=== PATIENT | male | born 1945 | race Caucasian/White ===

== ENCOUNTER 2021-01-04 13:03 | Emergency (ER) | payer MEDICARE ==
[2021-01-04] MEDS ORDERED: SODIUM CHLORIDE 0.9% 1,000 ML IV ONE (14:32)
[2021-01-04] MEDS ORDERED: IBUPROFEN 600 MG TAB PO STA (14:32)
--- NOTE | 2021-01-04 14:36 | ED ---
General Adult HPI - General Source: patient, RN notes reviewed, old records reviewed Mode of arrival: wheelchair Limitations: no limitations <Gerry Cartagena - Last Filed: 01/04/21 14:32> <Jerardo Shafer - Last Filed: 01/04/21 16:18> - General Chief complaint: Shortness of Breath Stated complaint: Fever, Cough, SOB Time Seen by Provider: 01/04/21 14:15 - History of Present Illness Initial comments: This is a 75-year-old male who presents emergency Department stating he thinks his COVID. Patient states for one week he has been having a cough and body aches he recently lost his taste and smell. Patient also states he's had diarrhea the last couple of days. Patient denies any shortness of breath or chest pain or palpitations. Patient states he just feels terrible. Patient did not get the vaccine. (Gerry Cartagena) - Related Data Home Medications Medication Instructions Recorded Confirmed Ascorbic Acid [Vitamin C] 1,000 mg PO DAILY 01/04/21 01/04/21 Cetirizine HCl 10 mg PO DAILY PRN 01/04/21 01/04/21 Cholecalciferol [Vitamin D3 (25 25 mcg PO DAILY 01/04/21 01/04/21 Mcg = 1000 Iu)] Multivitamins, Thera [Multivitamin 1 tab PO DAILY 01/04/21 01/04/21 (formulary)] Vitamin B Complex 1 cap PO DAILY 01/04/21 01/04/21 Zinc Gluconate [Zinc] 50 mg PO HS 01/04/21 01/04/21 Allergies Allergy/AdvReac Type Severity Reaction Status Date / Time No Known Allergies Allergy Verified 01/04/21 14:38 Review of Systems ROS Other: All systems not noted in ROS Statement are negative. <Gerry Cartagena - Last Filed: 01/04/21 14:32> ROS Other: All systems not noted in ROS Statement are negative. <Jerardo Shafer - Last Filed: 01/04/21 16:18> ROS Statement: Those systems with pertinent positive or pertinent negative responses have been documented in the HPI. Past Medical History Past Medical History: No Reported History History of Any Multi-Drug Resistant Organisms: None Reported Past Surgical History: Hernia Repair, Orthopedic Surgery, Tonsillectomy Additional Past Surgical History / Comment(s): thumb joint bilat Past Psychological History: No Psychological Hx Reported Smoking Status: Never smoker Past Alcohol Use History: None Reported Past Drug Use History: None Reported <Gerry Cartagena - Last Filed: 01/04/21 14:32> General Exam Limitations: no limitations <Gerry Cartagena - Last Filed: 01/04/21 14:32> - General Exam Comments Initial Comments: GENERAL: Patient is well-developed and well-nourished. Patient is nontoxic and well- hydrated and is in mild distress. ENT: Neck is soft and supple. No significant lymphadenopathy is noted. Oropharynx is clear. Moist mucous membranes. Neck has full range of motion without eliciting any pain. EYES: The sclera were anicteric and conjunctiva were pink and moist. Extraocular movements were intact and pupils were equal round and reactive to light. Eyelids were unremarkable. PULMONARY: Patient has some crackles in the bases. CARDIOVASCULAR: There is a regular rate and rhythm without any murmurs gallops or rubs. ABDOMEN: Soft and nontender with normal bowel sounds. SKIN: Skin is clear with no lesions or rashes and otherwise unremarkable. NEUROLOGIC: Patient is alert and oriented x3. Cranial nerves II through XII are grossly intact. Motor and sensory are also intact. Normal speech, volume and content. Symmetrical smile. MUSCULOSKELETAL: Normal extremities with adequate strength and full range of motion. No lower extremity swelling or edema. No calf tenderness. LYMPHATICS: No significant lymphadenopathy is noted PSYCHIATRIC: Normal psychiatric evaluation. (Gerry Cartagena) Course Vital Signs 01/04/21 01/04/21 01/04/21 13:34 14:12 14:20 Temperature 99.8 F H Pulse Rate 71 67 Respiratory 18 16 16 Rate Blood Pressure 100/61 105/67 O2 Sat by Pulse 95 100 Oximetry 01/04/21 15:40 Temperature 97.8 F Pulse Rate 68 Respiratory 18 Rate Blood Pressure 112/87 O2 Sat by Pulse 97 Oximetry Medical Decision Making <Gerry Cartagena - Last Filed: 01/04/21 14:32> <Jerardo Shafer - Last Filed: 01/04/21 16:18> - Medical Decision Making patient received the monoclonal antibodies. Dr. Shafer be taking over the care of this patient (Gerry Cartagena) Patient care is signed out to me by previous shift physician, Dr. Cartagena. Briefly, patient is a 75-year-old male a positive for coronal virus. Patient is not vaccinated. Patient ordered for monoclonal antibodies. He is allegedly hypoxic and well-appearing at the bedside. Plan is to reevaluate the patient after monoclonal antibody infusion and observation and determine final disposition. Reevaluated at bedside at 4:20 PM found to be stable medical condition. Patient not showing any signs of respiratory distress. Is well-appearing at the bedside. X-ray shows brisk chronic interstitial prominence. Patient will be discharged. Return precautions discussed. Patient is agreeable to plan. (Jerardo Shafer) - Lab Data Lab Results 01/04/21 Range/Units 13:41 Coronavirus (PCR) Detected A (Not Detectd) Disposition <Lane Cartagenae - Last Filed: 01/04/21 14:32> Is patient prescribed a controlled substance at d/c from ED?: No <Jerardo Shafer - Last Filed: 01/04/21 16:18> Clinical Impression: COVID-19 Disposition: HOME SELF-CARE Condition: Fair Instructions (If sedation given, give patient instructions): Coronavirus Disease 2019 (COVID-19) Referrals: Wes Umana MD [Primary Care Provider] - 1-2 days
[2021-01-04] MEDS: ACETAMINOPHEN TAB 500 MG TAB PO STA ×2 (14:42→14:44)
[2021-01-04] MEDS ORDERED: CASIRIVIMAB/IMDEVIMAB (EUA) 1,200 MG in SODIUM CHLORIDE 0.9% 100 ML IVPB ONE (15:00)
[2021-01-04] MEDS ORDERED: SODIUM CHLORIDE 0.9% 50 ML IVPB ONE (15:00)
--- NOTE | 2021-01-04 15:27 | XR ---
EXAMINATION TYPE: XR chest 2V DATE OF EXAM: 01/04/2021 COMPARISON: None HISTORY: Difficulty breathing TECHNIQUE: Frontal and lateral views of the chest are obtained. FINDINGS: There is mild diffuse interstitial prominence particularly in the mid and lower lung zones which could represent an acute process or chronic interstitial process. There is no prior study for comparison. The heart is normal in size. The pulmonary vasculature is not cephalized. There is no pleural effusion or pneumothorax. The osseous structures are intact IMPRESSION: Mild diffuse interstitial prominence in the mid and lower lung zones which could represe nt a chronic process although an acute interstitial process is not excluded. There is no prior study for comparison.
[2021-01-04 15:40] VITALS: BP 112/87; PULSE 68; RESP 18; TEMP 97.8
== END 2021-01-04 16:39 | disposition home or self-care (01) ==
LOC: EC 13:03
DX: U07.1 COVID-19 (principal)
CPT/HCPCS: 96365 ×2; 96361 ×2; 99284 ×2; 87635; 71046; Q0243; 96360

== ENCOUNTER 2021-01-08 14:38 | Inpatient (IN) | payer MEDICARE ==
[2021-01-08] MEDS ORDERED: SODIUM CHLORIDE 0.9% 1,000 ML IV STA (16:00)
--- NOTE | 2021-01-08 16:22 | XR ---
EXAMINATION TYPE: XR chest 2V DATE OF EXAM: 01/08/2021 COMPARISON: Chest x-ray 4 days ago. HISTORY: Weakness. COVID. TECHNIQUE: Frontal and lateral views of the chest are obtained. FINDINGS: The osseous structures remain demineralized. Cardiac silhouette size stable and within nor mal limits. There are bilateral chronic parenchymal changes with persistent left basilar opacity and developing peripheral multifocal right mid to lower lung opacities thought present. No pleural effusi on or pneumothorax seen bilaterally. IMPRESSION: Stable left basilar opacity. New peripheral multifocal right mid to lower lung opacities . Findings likely product of known covid-19 infection.
[2021-01-08 16:39] LABS: Basophils % (A) 0 %; Eosinophils % (A) 0 %; HCT 43.5 % (39.0-53.0); HGB 14.7 gm/dL (13.0-17.5); Lymphocytes # (A) 0.4 k/uL (1.0-4.8); Lymphocytes % (A) 6 %; MCH 30.6 pg (25.0-35.0); MCHC 33.8 g/dL (31.0-37.0); MCV 90.4 fL (80.0-100.0); Mean Platelet Volume 7.6; Monocytes # (A) 0.6 k/uL (0-1.0); Monocytes % (A) 8 %; Neutrophils # (A) 6.5 k/uL (1.3-7.7); Neutrophils % (A) 85 %; Platelet Count 212 k/uL (150-450); RBC 4.81 m/uL (4.30-5.90); WBC 7.7 k/uL (3.8-10.6)
[2021-01-08 16:47] LABS: ALT 92 U/L (4-49); AST 122 U/L (17-59); African American GFR (CKD) >90 (>60 ml/min/1.73 sqM); Albumin 3.7 g/dL (3.5-5.0); Alkaline Phosphatase 91 U/L (38-126); Anion Gap 13 mmol/L; Blood Urea Nitrogen 15 mg/dL (9-20); Calcium 9.1 mg/dL (8.4-10.2); Carbon Dioxide 20 mmol/L (22-30); Chloride 100 mmol/L (98-107); Glucose 109 mg/dL (74-99); Non-African American GFR(CKD) 88 (>60 ml/min/1.73 sqM); Potassium 4.3 mmol/L (3.5-5.1); Sodium 133 mmol/L (137-145); Total Bilirubin 1.3 mg/dL (0.2-1.3); Total Protein 6.8 g/dL (6.3-8.2)
[2021-01-08 16:50] LABS: Partial Thromboplastin Time 23.4 sec (22.0-30.0); Prothrombin Time 10.9 sec (9.0-12.0)
[2021-01-08 18:10] LABS: Appearance,Urine Clear (Clear); Bilirubin,Urine Negative (Negative); Blood,Urine Negative (Negative); Color,Urine Yellow; Glucose,Urine (UA) Negative (Negative); Ketones,Urine 2+ (Negative); Leukocyte Esterase,Urine Negative (Negative); Nitrite,Urine Negative (Negative); Protein,Urine Trace (Negative); Specific Gravity,Urine 1.005 (1.001-1.035); Urobilinogen,Urine <2.0 mg/dL (<2.0)
--- NOTE | 2021-01-08 18:30 | ED ---
General Adult HPI - General Chief complaint: Weakness Stated complaint: COVID+,Vomiting Revisit Time Seen by Provider: 01/08/21 15:50 Source: patient, family, RN notes reviewed Mode of arrival: wheelchair Limitations: no limitations - History of Present Illness Initial comments: Patient is a 75-year-old male that presents to the emergency department com plaining of continuing symptoms of Covid. He notes he got monoclonal antibodies approximately 1 week ago. Patient is otherwise well-appearing. He notes that he just feels rundown still. Patient denied any chest pain shortness of breath headache nausea vomiting diarrhea constipation fever fatigue chills. - Related Data Home Medications Medication Instructions Recorded Confirmed Ascorbic Acid [Vitamin C] 1,000 mg PO DAILY 01/04/21 01/08/21 Cetirizine HCl 10 mg PO DAILY PRN 01/04/21 01/08/21 Cholecalciferol [Vitamin D3 (25 25 mcg PO DAILY 01/04/21 01/08/21 Mcg = 1000 Iu)] Multivitamins, Thera [Multivitamin 1 tab PO DAILY 01/04/21 01/08/21 (formulary)] Vitamin B Complex 1 cap PO DAILY 01/04/21 01/08/21 Zinc Gluconate [Zinc] 50 mg PO HS 01/04/21 01/08/21 Acetaminophen Tab [Tylenol Tab] 500 mg PO Q6H PRN 01/08/21 01/08/21 Allergies Allergy/AdvReac Type Severity Reaction Status Date / Time No Known Allergies Allergy Verified 01/08/21 17:54 Review of Systems ROS Statement: Those systems with pertinent positive or pertinent negative responses have been documented in the HPI. ROS Other: All systems not noted in ROS Statement are negative. Past Medical History Past Medical History: No Reported History History of Any Multi-Drug Resistant Organisms: None Reported Past Surgical History: Hernia Repair, Orthopedic Surgery, Tonsillectomy Additional Past Surgical History / Comment(s): thumb joint bilat Past Psychological History: No Psychological Hx Reported Smoking Status: Never smoker Past Alcohol Use History: None Reported Past Drug Use History: None Reported General Exam Limitations: no limitations General appearance: alert, in no apparent distress Head exam: Present: atraumatic, normocephalic, normal inspection Eye exam: Present: normal appearance, PERRL, EOMI. Absent: scleral icterus, conjunctival injection, periorbital swelling ENT exam: Present: normal exam, mucous membranes moist Neck exam: Present: normal inspection Respiratory exam: Present: normal lung sounds bilaterally. Absent: respiratory distress, wheezes, rales, rhonchi, stridor Cardiovascular Exam: Present: regular rate, normal rhythm, normal heart sounds. Absent: systolic murmur, diastolic murmur, rubs, gallop, clicks GI/Abdominal exam: Present: soft, normal bowel sounds. Absent: distended, tenderness, guarding, rebound, rigid Extremities exam: Present: normal inspection, full ROM, normal capillary refill. Absent: tenderness, pedal edema, joint swelling, calf tenderness Neurological exam: Present: alert, oriented X3 Psychiatric exam: Present: normal affect, normal mood Skin exam: Present: warm, dry, intact, normal color. Absent: rash Course Vital Signs 01/08/21 14:47 Temperature 96.8 F L Pulse Rate 67 Respiratory 24 Rate Blood Pressure 106/62 O2 Sat by Pulse 94 L Oximetry Medical Decision Making - Medical Decision Making 75-year-old male with continuing Covid symptoms after monoclonal antibody infusion. Labs, chest x-ray ordered. Labs unremarkable. Chest x-ray shows bilateral infiltrates consistent with Covid 19. Patient's vital signs are stable. Case discussed with Dr. Perez, patient discharge home. - Lab Data Result diagrams: 01/08/21 16:16 01/08/21 16:16 Lab Results 01/08/21 01/08/21 01/08/21 Range/Units 16:16 16:16 16:16 WBC 7.7 (3.8-10.6) k/uL RBC 4.81 (4.30-5.90) m/uL Hgb 14.7 (13.0-17.5) gm/dL Hct 43.5 (39.0-53.0) % MCV 90.4 (80.0-100.0) fL MCH 30.6 (25.0-35.0) pg MCHC 33.8 (31.0-37.0) g/dL RDW 12.0 (11.5-15.5) % Plt Count 212 (150-450) k/uL MPV 7.6 Neutrophils % 85 % Lymphocytes % 6 % Monocytes % 8 % Eosinophils % 0 % Basophils % 0 % Neutrophils # 6.5 (1.3-7.7) k/uL Lymphocytes # 0.4 L (1.0-4.8) k/uL Monocytes # 0.6 (0-1.0) k/uL Eosinophils # 0.0 (0-0.7) k/uL Basophils # 0.0 (0-0.2) k/uL PT 10.9 (9.0-12.0) sec INR 1.0 (<1.2) APTT 23.4 (22.0-30.0) sec Sodium (137-145) mmol/L Potassium (3.5-5.1) mmol/L Chloride (98-107) mmol/L Carbon Dioxide (22-30) mmol/L Anion Gap mmol/L BUN (9-20) mg/dL Creatinine (0.66-1.25) mg/dL Est GFR (CKD-EPI)AfAm (>60 ml/min/1.73 sqM) Est GFR (CKD-EPI)NonAf (>60 ml/min/1.73 sqM) Glucose (74-99) mg/dL Plasma Lactic Acid Dean (0.7-2.0) mmol/L Calcium (8.4-10.2) mg/dL Total Bilirubin (0.2-1.3) mg/dL AST (17-59) U/L ALT (4-49) U/L Alkaline Phosphatase (38-126) U/L Total Protein (6.3-8.2) g/dL Albumin (3.5-5.0) g/dL Urine Color Yellow Urine Appearance Clear (Clear) Urine pH 6.0 (5.0-8.0) Ur Specific Marble 1.005 (1.001-1.035) Urine Protein Trace H (Negative) Urine Glucose (UA) Negative (Negative) Urine Ketones 2+ H (Negative) Urine Blood Negative (Negative) Urine Nitrite Negative (Negative) Urine Bilirubin Negative (Negative) Urine Urobilinogen <2.0 (<2.0) mg/dL Ur Leukocyte Esterase Negative (Negative) 01/08/21 01/08/21 Range/Units 16:16 16:16 WBC (3.8-10.6) k/uL RBC (4.30-5.90) m/uL Hgb (13.0-17.5) gm/dL Hct (39.0-53.0) % MCV (80.0-100.0) fL MCH (25.0-35.0) pg MCHC (31.0-37.0) g/dL RDW (11.5-15.5) % Plt Count (150-450) k/uL MPV Neutrophils % % Lymphocytes % % Monocytes % % Eosinophils % % Basophils % % Neutrophils # (1.3-7.7) k/uL Lymphocytes # (1.0-4.8) k/uL Monocytes # (0-1.0) k/uL Eosinophils # (0-0.7) k/uL Basophils # (0-0.2) k/uL PT (9.0-12.0) sec INR (<1.2) APTT (22.0-30.0) sec Sodium 133 L (137-145) mmol/L Potassium 4.3 (3.5-5.1) mmol/L Chloride 100 (98-107) mmol/L Carbon Dioxide 20 L (22-30) mmol/L Anion Gap 13 mmol/L BUN 15 (9-20) mg/dL Creatinine 0.80 (0.66-1.25) mg/dL Est GFR (CKD-EPI)AfAm >90 (>60 ml/min/1.73 sqM) Est GFR (CKD-EPI)NonAf 88 (>60 ml/min/1.73 sqM) Glucose 109 H (74-99) mg/dL Plasma Lactic Acid Dean 1.2 (0.7-2.0) mmol/L Calcium 9.1 (8.4-10.2) mg/dL Total Bilirubin 1.3 (0.2-1.3) mg/dL AST 122 H (17-59) U/L ALT 92 H (4-49) U/L Alkaline Phosphatase 91 (38-126) U/L Total Protein 6.8 (6.3-8.2) g/dL Albumin 3.7 (3.5-5.0) g/dL Urine Color Urine Appearance (Clear) Urine pH (5.0-8.0) Ur Specific Mar[place] (1.001-1.035) Urine Protein (Negative) Urine Glucose (UA) (Negative) Urine Ketones (Negative) Urine Blood (Negative) Urine Nitrite (Negative) Urine Bilirubin (Negative) Urine Urobilinogen (<2.0) mg/dL Ur Leukocyte Esterase (Negative) - Radiology Data Radiology results: report reviewed, image reviewed Chest x-ray: Stable left basilar opacity. Peripheral multifocal right mid to lower lung opacities. Findings likely products of known Covid 19 infection. Disposition Clinical Impression: COVID-19 Disposition: HOME SELF-CARE Condition: Stable Instructions (If sedation given, give patient instructions): Coronavirus Disease 2019 (COVID-19) Additional Instructions: Please return to the Emergency Department if symptoms worsen or any other concerns. Symptoms may take several weeks to improve back to normal baseline. Follow-up primary care 1-2 days. Is patient prescribed a controlled substance at d/c from ED?: No Referrals: Wes Umana MD [Primary Care Provider] - 1-2 days Time of Disposition: 18:30
[2021-01-08] MEDS ORDERED: ACETAMINOPHEN TAB 325 MG TAB PO STA (18:40)
[2021-01-08] MEDS ORDERED: NALOXONE 0.4 MG/ML 1 ML VIAL IV PRN ×2 (19:33→19:55)
--- NOTE | 2021-01-08 19:33 | ED ---
Medical Decision Making - Medical Decision Making On reevaluation patient's oxygen saturation in the room was anywhere from 86 to low 90s. Patient was started on nasal oxygen at 2 L/m. Dr. Riojas was consulted and will accept the admit - Lab Data Result diagrams: 01/08/21 16:16 01/08/21 16:16 Lab Results 01/08/21 01/08/21 01/08/21 Range/Units 16:16 16:16 16:16 WBC 7.7 (3.8-10.6) k/uL RBC 4.81 (4.30-5.90) m/uL Hgb 14.7 (13.0-17.5) gm/dL Hct 43.5 (39.0-53.0) % MCV 90.4 (80.0-100.0) fL MCH 30.6 (25.0-35.0) pg MCHC 33.8 (31.0-37.0) g/dL RDW 12.0 (11.5-15.5) % Plt Count 212 (150-450) k/uL MPV 7.6 Neutrophils % 85 % Lymphocytes % 6 % Monocytes % 8 % Eosinophils % 0 % Basophils % 0 % Neutrophils # 6.5 (1.3-7.7) k/uL Lymphocytes # 0.4 L (1.0-4.8) k/uL Monocytes # 0.6 (0-1.0) k/uL Eosinophils # 0.0 (0-0.7) k/uL Basophils # 0.0 (0-0.2) k/uL PT 10.9 (9.0-12.0) sec INR 1.0 (<1.2) APTT 23.4 (22.0-30.0) sec Sodium (137-145) mmol/L Potassium (3.5-5.1) mmol/L Chloride (98-107) mmol/L Carbon Dioxide (22-30) mmol/L Anion Gap mmol/L BUN (9-20) mg/dL Creatinine (0.66-1.25) mg/dL Est GFR (CKD-EPI)AfAm (>60 ml/min/1.73 sqM) Est GFR (CKD-EPI)NonAf (>60 ml/min/1.73 sqM) Glucose (74-99) mg/dL Plasma Lactic Acid Dean (0.7-2.0) mmol/L Calcium (8.4-10.2) mg/dL Total Bilirubin (0.2-1.3) mg/dL AST (17-59) U/L ALT (4-49) U/L Alkaline Phosphatase (38-126) U/L Total Protein (6.3-8.2) g/dL Albumin (3.5-5.0) g/dL Urine Color Yellow Urine Appearance Clear (Clear) Urine pH 6.0 (5.0-8.0) Ur Specific [place] 1.005 (1.001-1.035) Urine Protein Trace H (Negative) Urine Glucose (UA) Negative (Negative) Urine Ketones 2+ H (Negative) Urine Blood Negative (Negative) Urine Nitrite Negative (Negative) Urine Bilirubin Negative (Negative) Urine Urobilinogen <2.0 (<2.0) mg/dL Ur Leukocyte Esterase Negative (Negative) 01/08/21 01/08/21 Range/Units 16:16 16:16 WBC (3.8-10.6) k/uL RBC (4.30-5.90) m/uL Hgb (13.0-17.5) gm/dL Hct (39.0-53.0) % MCV (80.0-100.0) fL MCH (25.0-35.0) pg MCHC (31.0-37.0) g/dL RDW (11.5-15.5) % Plt Count (150-450) k/uL MPV Neutrophils % % Lymphocytes % % Monocytes % % Eosinophils % % Basophils % % Neutrophils # (1.3-7.7) k/uL Lymphocytes # (1.0-4.8) k/uL Monocytes # (0-1.0) k/uL Eosinophils # (0-0.7) k/uL Basophils # (0-0.2) k/uL PT (9.0-12.0) sec INR (<1.2) APTT (22.0-30.0) sec Sodium 133 L (137-145) mmol/L Potassium 4.3 (3.5-5.1) mmol/L Chloride 100 (98-107) mmol/L Carbon Dioxide 20 L (22-30) mmol/L Anion Gap 13 mmol/L BUN 15 (9-20) mg/dL Creatinine 0.80 (0.66-1.25) mg/dL Est GFR (CKD-EPI)AfAm >90 (>60 ml/min/1.73 sqM) Est GFR (CKD-EPI)NonAf 88 (>60 ml/min/1.73 sqM) Glucose 109 H (74-99) mg/dL Plasma Lactic Acid Dean 1.2 (0.7-2.0) mmol/L Calcium 9.1 (8.4-10.2) mg/dL Total Bilirubin 1.3 (0.2-1.3) mg/dL AST 122 H (17-59) U/L ALT 92 H (4-49) U/L Alkaline Phosphatase 91 (38-126) U/L Total Protein 6.8 (6.3-8.2) g/dL Albumin 3.7 (3.5-5.0) g/dL Urine Color Urine Appearance (Clear) Urine pH (5.0-8.0) Ur Specific [place] (1.001-1.035) Urine Protein (Negative) Urine Glucose (UA) (Negative) Urine Ketones (Negative) Urine Blood (Negative) Urine Nitrite (Negative) Urine Bilirubin (Negative) Urine Urobilinogen (<2.0) mg/dL Ur Leukocyte Esterase (Negative) Disposition Clinical Impression: COVID-19, Hypoxia Disposition: ADMITTED IP TO THIS HOSP Condition: Stable Instructions (If sedation given, give patient instructions): Coronavirus Disease 2019 (COVID-19) Is patient prescribed a controlled substance at d/c from ED?: No Referrals: Wes Umana MD [Primary Care Provider] - 1-2 days Time of Disposition: 19:33
[2021-01-08] MEDS: SODIUM CHLORIDE 0.9% 1,000 ML IV SCH (23:39)
[2021-01-09] MEDS ORDERED: DEXAMETHASONE SOD PHOSPHATE 10 MG/ML 1 ML VIAL IVP SCH (09:00)
--- NOTE | 2021-01-09 10:35 | P.CNPUL ---
History of Present Illness Consult date: 01/09/21 Requesting physician: Gonzalo Riojas Reason for consult: dyspnea, abnormal CXR/CT Chief complaint: Shortness of breath, generalized weakness History of present illness: This is a 75-year-old male patient who follows with Dr. Umana as his primary care provider. He has no significant past medical history. He had presented to the emergency room on 01/04/2021 with complaints of body aches loss of taste and smell and shortness of breath. He did test positive for COVID-19 and was given monoclonal antibodies. The patient is not vaccinated. He returned here to the emergency room last evening with worsening shortness of breath, cough and congestion. He has generalized aches and pains. His O2 saturation did drop at home into the 80s. He was 90% here on room air at rest. Currently in the low 90s on 3 L/m per nasal cannula. He is afebrile. Chest x-ray shows new peripheral multifocal bilateral opacities compared to chest x-ray on 01/05/2021. Count 7.7. Hemoglobin 14.7. Lymphocytes 0.4. Sodium 133. Potassium 4.3. Creatinine 0.80. AST 122. ALT 92. [place] virus positive on 01/04/2021. He states his symptoms started several days prior to that. Outside the window for Remdesivir. He is receiving fluids 0.9 normal saline at 130 ML's per hour. He is seen today in consultation in the emergency room. He is currently resting fairly comfortably on a stretcher. Not feeling much improvement today compared to yesterday. His main complaint currently is nausea. Review of Systems REVIEW OF SYSTEMS: CONSTITUTIONAL: Generalized weakness, fatigue. Denies any recent significant weight loss or weight gain. EYES: Denies change in vision. EARS, NOSE, MOUTH, THROAT: Denies headaches, denies sore throat. CARDIOVASCULAR: Denies chest pain, palpitations or syncopal episodes. RESPIRATORY: Positive for shortness of breath, cough, congestion no hemoptysis. GASTROINTESTINAL: Positive for nausea, denies abdominal pain GENITOURINARY: Denies hematuria, denies infections. MUSKULOSKELETAL: Denies pain, denies swelling. INTEGUMENTARY: Denies rash, denies eczema. NEUROLOGICAL: Denies recent memory loss, no recent seizure activity. PSYCHIATRIC: Denies anxiety, denies depression. HEMATOLOGIC/LYMPHATIC: Denies anemia, denies enlarged lymph nodes. Past Medical History Past Medical History: No Reported History History of Any Multi-Drug Resistant Organisms: None Reported Past Surgical History: Hernia Repair, Orthopedic Surgery, Tonsillectomy Additional Past Surgical History / Comment(s): thumb joint bilat Past Psychological History: No Psychological Hx Reported Smoking Status: Never smoker Past Alcohol Use History: None Reported Past Drug Use History: None Reported Medications and Allergies Home Medications Medication Instructions Recorded Confirmed Type Ascorbic Acid [Vitamin C] 1,000 mg PO DAILY 01/04/21 01/08/21 History Cetirizine HCl 10 mg PO DAILY PRN 01/04/21 01/08/21 History Cholecalciferol [Vitamin D3 (25 25 mcg PO DAILY 01/04/21 01/08/21 History Mcg = 1000 Iu)] Multivitamins, Thera [Multivitamin 1 tab PO DAILY 01/04/21 01/08/21 History (formulary)] Vitamin B Complex 1 cap PO DAILY 01/04/21 01/08/21 History Zinc Gluconate [Zinc] 50 mg PO HS 01/04/21 01/08/21 History Acetaminophen Tab [Tylenol Tab] 500 mg PO Q6H PRN 01/08/21 01/08/21 History Allergies Allergy/AdvReac Type Severity Reaction Status Date / Time No Known Allergies Allergy Verified 01/08/21 17:54 Physical Exam Vitals: Vital Signs Temp Pulse Resp BP Pulse Ox 01/09/21 06:46 71 18 125/70 93 L 01/08/21 23:41 70 16 122/71 92 L 01/08/21 20:34 75 18 111/61 95 01/08/21 18:52 99.1 F 84 18 107/67 90 L 01/08/21 16:52 82 18 110/72 93 L 01/08/21 14:47 96.8 F L 67 24 106/62 94 L GENERAL EXAM: Alert, 75-year-old gentleman, on 3 L nasal cannula, fairly comfortable in no apparent distress. HEAD: Normocephalic. EYES: Normal reaction of pupils, equal size. NOSE: Clear with pink turbinates. THROAT: No erythema or exudates. NECK: No masses, no JVD. CHEST: No chest wall deformity. LUNGS: Equal air entry with crackles in the bilateral bases. CVS: S1 and S2 normal with no audible murmur, regular rhythm. ABDOMEN: No hepatosplenomegaly, normal bowel sounds, no guarding or rigidity. SPINE: No scoliosis or deformity SKIN: No rashes CENTRAL NERVOUS SYSTEM: No focal deficits, tone is normal in all 4 extremities. EXTREMITIES: There is no peripheral edema. No clubbing, no cyanosis. Peripheral pulses are intact. Results - Laboratory Findings CBC and BMP: 01/08/21 16:16 01/08/21 16:16 PT/INR, D-dimer PT 10.9 sec (9.0-12.0) 01/08/21 16:16 INR 1.0 (<1.2) 01/08/21 16:16 Abnormal lab findings: Abnormal Labs 01/08/21 01/08/21 01/08/21 16:16 16:16 16:16 Lymphocytes # 0.4 L Sodium 133 L Carbon Dioxide 20 L Glucose 109 H AST 122 H ALT 92 H Urine Protein Trace H Urine Ketones 2+ H - Diagnostic Findings Chest x-ray: image reviewed Assessment and Plan Assessment: 1 Acute hypoxemic respiratory failure secondary to COVID-19 pneumonia. The patient is not vaccinated. He did receive monoclonal antibodies on 01/04/2021. Symptoms started several days prior to that. Outside the window for Remdesivir. 2 Mildly elevated LFTs 3 Lymphocytopenia secondary to above Plan: The patient was seen and evaluated by Dr. Jean-Baptiste Chest x-ray and labs reviewed Add Lovenox, Decadron, vitamin supplements Outside the window for Remdesivir Not qualifying for Baricitinib Obtain inflammatory markers Follow-up chest x-ray in the a.m. Titrate the FiO2 as tolerated We will continue to follow and make further recommendations based on his clinical status I, the cosigning physician, performed a history & physical examination of the patient. Lungs sounds crackles in the bilateral bases. Maintaining good O2 saturations in the 90s on 3 L/m per nasal cannula. I discussed the assessment and plan of care with my nurse practitioner, Geri Enrique. I attest to the above consultation as dictated by her. Time with Patient: Greater than 30
[2021-01-09] MEDS ORDERED: NON FORMULARY DRUG (Vitamin B Complex [Vitamin B Complex] 1 EACH Capsule) PO SCH (10:45)
[2021-01-09] MEDS: DEXAMETHASONE SOD PHOSPHATE 10 MG/ML 1 ML VIAL IVP SCH (11:58)
[2021-01-09] MEDS: ACETAMINOPHEN TAB 325 MG TAB PO PRN (11:59)
[2021-01-09] MEDS: ENOXAPARIN 40 MG/0.4 ML SYRINGE SQ SCH (11:59)
[2021-01-09] MEDS: MULTIVITAMINS, THERA 1 EACH TAB PO SCH (11:59)
[2021-01-09] MEDS: CHOLECALCIFEROL 25 MCG (1000 IU) TABLET PO SCH (11:59)
[2021-01-09] MEDS: ASCORBIC ACID 500 MG TAB PO SCH (11:59)
--- NOTE | 2021-01-09 14:01 | P.HPIM ---
History of Present Illness H&P Date: 01/09/21 Chief Complaint: Short of breath This is a pleasant 75-year-old patient of Dr. Umana. Has no reported medical history. Patient did not take the vaccine for COVID-19. Around December 27 patient started having symptoms. Patient's had progressive cough. Short of breath. Decreased appetite. Loss of smell and taste. Also diarrhea with Acticoat bed in the last 24 hours. Has had headaches and fevers. Not sleeping well. Patient has chronic pain in the joints. Patient received monoclonal antibodies here at [facility] on January 04. Symptoms progressed to get worse. Feeling weak diet and rundown. 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 . No smoking. Alcohol occasionally. Family history: Reviewed, noncontributory to presentation Physical examination: VITAL SIGNS: 96.8, 67, 24, 106/62, 90% on room air GENERAL: BMI 25.1, laying in bed, tired, coughing. EYES: Pupils equal. Conjunctiva normal. HEENT: External appearance of nose and ears normal, oral cavity grossly normal. NECK: JVD not raised; masses not palpable. HEART: First and second heart sounds are normal; no edema. LUNGS: Respiratory rate increased, decreased breath sounds and wheezing, coarse crackles. ABDOMEN: Soft, nontender, liver spleen not palpable, no masses palpable. PSYCH: Alert and oriented x3; mood and affect tiredl. MUSCULAR skeletal: Evidence of OA NEUROLOGICAL: Cranial nerves grossly intact; no facial asymmetry, power and sensation grossly intact. LYMPHATICS: No lymph nodes palpable in the axilla and neck INVESTIGATIONS, reviewed in the clinical context: WBC 7.7 hemoglobin 14.7 platelets 212 sodium 133 potassium 4.3 BUN 15 creatinine 0.8 AST 122 ALT 92 UA positive for protein trace. Ketone 2+ Chest x-ray film personally reviewed by me-bilateral infiltrates Assessment and plan: -Acute bilateral COVID-19 pneumonitis, in a patient who did not take the vaccine. Symptoms have been present for about 11 days. Dexamethasone 6 mg. Vitamin C vitamin D zinc. Subcu Lovenox -Acute hypoxic respiratory failure from COVID-19 pneumonitis Oxygen 2 L. Titrate to keep the pulse ox between 90-96%. Incentive spirometry. -Acute medical asthenia from ID-19 Up in chair, activity as tolerated -Acute Aguesis, and anosmia from COVID-19 -Primary osteoarthritis multiple joints bilaterally Pain medications as needed -Acute insomnia from ID-19 Melatonin as needed -Clinical dehydration Lactated Ringer's Pulmonary consulted. Decadron. Oxygen. Vitamin C vitamin D. Zinc. Incentive spirometry. Activity as tolerated. Telemetry Given the complexity and severity of patient's condition expect the patient to be in the hospital at least for 2 overnights Past Medical History Past Medical History: No Reported History History of Any Multi-Drug Resistant Organisms: None Reported Past Surgical History: Hernia Repair, Orthopedic Surgery, Tonsillectomy Additional Past Surgical History / Comment(s): thumb joint bilat Past Psychological History: No Psychological Hx Reported Smoking Status: Never smoker Past Alcohol Use History: None Reported Past Drug Use History: None Reported Medications and Allergies Home Medications Medication Instructions Recorded Confirmed Type Ascorbic Acid [Vitamin C] 1,000 mg PO DAILY 01/04/21 01/08/21 History Cetirizine HCl 10 mg PO DAILY PRN 01/04/21 01/08/21 History Cholecalciferol [Vitamin D3 (25 25 mcg PO DAILY 01/04/21 01/08/21 History Mcg = 1000 Iu)] Multivitamins, Thera [Multivitamin 1 tab PO DAILY 01/04/21 01/08/21 History (formulary)] Vitamin B Complex 1 cap PO DAILY 01/04/21 01/08/21 History Zinc Gluconate [Zinc] 50 mg PO HS 01/04/21 01/08/21 History Acetaminophen Tab [Tylenol Tab] 500 mg PO Q6H PRN 01/08/21 01/08/21 History Allergies Allergy/AdvReac Type Severity Reaction Status Date / Time No Known Allergies Allergy Verified 01/08/21 17:54 Physical Exam Vitals: Vital Signs Temp Pulse Resp BP Pulse Ox 01/09/21 06:46 71 18 125/70 93 L 01/08/21 23:41 70 16 122/71 92 L 01/08/21 20:34 75 18 111/61 95 01/08/21 18:52 99.1 F 84 18 107/67 90 L 01/08/21 16:52 82 18 110/72 93 L 01/08/21 14:47 96.8 F L 67 24 106/62 94 L Results CBC & Chem 7: 01/08/21 16:16 01/08/21 16:16 Labs: Abnormal Lab Results - Last 24 Hours (Table) 01/08/21 01/08/21 01/08/21 Range/Units 16:16 16:16 16:16 Lymphocytes # 0.4 L (1.0-4.8) k/uL Sodium 133 L (137-145) mmol/L Carbon Dioxide 20 L (22-30) mmol/L Glucose 109 H (74-99) mg/dL AST 122 H (17-59) U/L ALT 92 H (4-49) U/L Urine Protein Trace H (Negative) Urine Ketones 2+ H (Negative)
[2021-01-09] MEDS: SODIUM CHLORIDE 0.9% 1,000 ML IV SCH (16:47)
[2021-01-09] MEDS: LACTATED RINGERS 1,000 ML IV SCH ×2 (17:51→21:49)
[2021-01-09] MEDS: ZINC SULFATE 220 MG CAP PO SCH (21:49)
[2021-01-10] MEDS: CHOLECALCIFEROL 25 MCG (1000 IU) TABLET PO SCH (07:40)
[2021-01-10] MEDS: MULTIVITAMINS, THERA 1 EACH TAB PO SCH (07:40)
[2021-01-10] MEDS: ASCORBIC ACID 500 MG TAB PO SCH (07:40)
[2021-01-10] MEDS: DEXAMETHASONE SOD PHOSPHATE 10 MG/ML 1 ML VIAL IVP SCH (07:40)
[2021-01-10] MEDS: ENOXAPARIN 40 MG/0.4 ML SYRINGE SQ SCH (07:41)
[2021-01-10] MEDS: ACETAMINOPHEN TAB 325 MG TAB PO PRN (07:42)
--- NOTE | 2021-01-10 12:41 | P.PN ---
Subjective Progress Note Date: 01/10/21 Principal diagnosis: Shortness of breath, generalized weakness This is a 75-year-old male patient who follows with Dr. Umana as his primary care provider. He has no significant past medical history. He had presented to the emergency room on 01/04/2021 with complaints of body aches loss of taste and smell and shortness of breath. He did test positive for COVID-19 and was given monoclonal antibodies. The patient is not vaccinated. He returned here to the emergency room last evening with worsening shortness of breath, cough and congestion. He has generalized aches and pains. His O2 saturation did drop at home into the 80s. He was 90% here on room air at rest. Currently in the low 90s on 3 L/m per nasal cannula. He is afebrile. Chest x-ray shows new peripheral multifocal bilateral opacities compared to chest x-ray on 01/05/2021. Count 7.7. Hemoglobin 14.7. Lymphocytes 0.4. Sodium 133. Potassium 4.3. Creatinine 0.80. AST 122. ALT 92. Ceballos virus positive on 01/04/2021. He states his symptoms started several days prior to that. Outside the window for Remdesivir. He is receiving fluids 0.9 normal saline at 130 ML's per hour. He is seen today in consultation in the emergency room. He is currently resting fairly comfortably on a stretcher. Not feeling much improvement today compared to yesterday. His main complaint currently is nausea. On 01/10/2021 patient seen in follow-up on medical surgical floor. He is on 4 L of oxygen pulse ox is 97%, short of breath with exertion, but overall he states he feels somewhat better compared to when he came in. Does have a cough, overall feels very fatigued, he is having on and off headaches. No fever or chills, vital signs have been stable, breathing is nonlabored. His d-dimer today is 0.74, CRP is 5.9, troponin was negative at less than 0.012. Patient continues on Decadron 6 mg daily, Lovenox 40 mg daily, lactated Ringer 70-75 ML per hour, and creatinine 19 and vitamins including vitamin C, vitamin D, and zinc Objective - Vital Signs Vital signs: Vital Signs Temp 98.5 F 01/10/21 09:29 Pulse 65 01/10/21 09:29 Resp 18 01/10/21 09:29 BP 96/57 01/10/21 09:29 Pulse Ox 96 01/10/21 09:29 Intake & Output 01/09/21 01/10/21 01/10/21 18:59 06:59 18:59 Intake Total 600 1480 Output Total 450 Balance 600 1480 -450 Weight 72.575 kg Intake: Intake, IV Titration 600 1000 Amount Lactated Ringers 1,000 ml 600 1000 @ 75 mls/hr IV .[id number] [facility] Rx#:[id number] Oral 480 Output: Urine 450 Other: Voiding Method Toilet Urinal - Exam GENERAL EXAM: Alert, pleasant, 75-year-old white female, on 4 L of oxygen with pulse ox of 96% comfortable in no apparent distress. HEAD: Normocephalic/atraumatic. EYES: Normal reaction of pupils, equal size. Conjunctiva pink, sclera white. NOSE: Clear with pink turbinates. THROAT: No erythema or exudates. NECK: No masses, no JVD, no thyroid enlargement, no adenopathy. CHEST: No chest wall deformity. Symmetrical expansion. LUNGS: Equal air entry with diminished breath sounds bilaterally, and bibasilar crackles CVS: Regular rate and rhythm, normal S1 and S2, no gallops, no murmurs, no rubs ABDOMEN: Soft, nontender. No hepatosplenomegaly, normal bowel sounds, no guarding or rigidity. EXTREMITIES: No clubbing, no edema, no cyanosis, 2+ pulses and upper and lower extremities. MUSCULOSKELETAL: Muscle strength and tone normal. SPINE: No scoliosis or deformity SKIN: No rashes CENTRAL NERVOUS SYSTEM: Alert and oriented -3. No focal deficits, tone is normal in all 4 extremities. PSYCHIATRIC: Alert and oriented -3. Appropriate affect. Intact judgment and insight. - Labs CBC & Chem 7: 01/08/21 16:16 01/08/21 16:16 Labs: Abnormal Lab Results - Last 24 Hours (Table) 01/10/21 01/10/21 Range/Units 06:15 06:16 D-Dimer 0.74 H (<0.60) mg/L FEU C-Reactive Protein 5.9 H (<1.0) mg/dL Assessment and Plan Plan: Assessment: #1. Acute hypoxemic respiratory failure secondary to COVID-19 pneumonia. The patient is not vaccinated. He did receive monoclonal antibodies on 01/04/2021. Symptoms started several days prior to that. Outside the window for Remdesivir. #2. Mildly elevated LFTs #3. Lymphocytopenia secondary to above Plan: Continue with current medical treatment Continue Decadron Continue Lovenox Continue vitamins C, D and zinc We will follow patient's inflammatory markers, and overall clinical course I performed a history & physical examination of the patient and discussed their management with my nurse practitioner, Heaven Smith. I reviewed the nurse practitioner's note and agree with the documented findings and plan of care. Lung sounds are positive for diminished breath sounds throughout the lung andrade. The findings and the impression was discussed with the patient. I attest to the documentation by the nurse practitioner. Time with Patient: Less than 30
--- NOTE | 2021-01-10 12:41 | P.PN ---
Progress Note - Text Progress Note Date: 01/10/21 Chief Complaint: Short of breath This is a pleasant 75-year-old patient of Dr. Umana. Has no reported medical history. Patient did not take the vaccine for COVID-19. Around December 27 patient started having symptoms. Patient's had progressive cough. Short of breath. Decreased appetite. Loss of smell and taste. Also diarrhea with Acticoat bed in the last 24 hours. Has had headaches and fevers. Not sleeping well. Patient has chronic pain in the joints. Patient received monoclonal antibodies here at [facility] on January 04. Symptoms progressed to get worse. Feeling weak diet and rundown. Admitted with acute COVID-19 pneumonitis, acute hypoxic respiratory failure, acute asthenia, dehydration, acute medical debility. Started on dexamethasone, subcu Lovenox, IV fluids. January 10: Tired, laying in bed. Eating some. Short of breath. Some cough. Requested the patient sit up in a chair. Review of systems: Was done for constitutional, cardiovascular, GI, pulmonary. relevant finding as above Active Medications Acetaminophen (Acetaminophen Tab 325 Mg Tab) 650 mg PO Q6HR PRN PRN Reason: Mild Pain or Fever > 100.5 Last Admin: 01/10/21 07:42 Dose: 650 mg Documented by: Ascorbic Acid (Ascorbic Acid 500 Mg Tab) 1,000 mg PO DAILY [facility] Last Admin: 01/10/21 07:40 Dose: 1,000 mg Documented by: Cholecalciferol (Cholecalciferol 25 Mcg (1000 Iu) Tablet) 100 mcg PO DAILY [facility] Last Admin: 01/10/21 07:40 Dose: 100 mcg Documented by: Dexamethasone Sodium Phosphate (Dexamethasone Sod Phosphate 10 Mg/Ml 1 Ml Vial) 6 mg IVP DAILY [facility] Last Admin: 01/10/21 07:40 Dose: 6 mg Documented by: Enoxaparin Sodium (Enoxaparin 40 Mg/0.4 Ml Syringe) 40 mg SQ DAILY [facility] Last Admin: 01/10/21 07:41 Dose: 40 mg Documented by: Lactated Ringer's (Lactated Ringers) 1,000 mls @ 75 mls/hr IV .[id number] [facility] Last Admin: 01/09/21 21:49 Dose: 75 mls/hr Documented by: Multivitamins (Multivitamins, Thera 1 Each Tab) 1 each PO DAILY [facility] Last Admin: 01/10/21 07:40 Dose: 1 each Documented by: Naloxone HCl (Naloxone 0.4 Mg/Ml 1 Ml Vial) 0.2 mg IV Q2M PRN PRN Reason: Opioid Reversal Zinc Sulfate (Zinc Sulfate 220 Mg Cap) 220 mg PO HS [facility] Last Admin: 01/09/21 21:49 Dose: 220 mg Documented by: Past medical history to include: Unremarkable 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 . No smoking. Alcohol occasionally. Family history: Reviewed, noncontributory to presentation Physical examination: VITAL SIGNS: 98.5, 65, 18, 96.57, 96% on 4 L GENERAL: Laying in bed, awake, tired LUNGS: Respiratory rate increased, PSYCH: Alert and oriented x3; mood and affect tired. MUSCULAR skeletal: Evidence of OA NEUROLOGICAL: Cranial nerves grossly intact; no facial asymmetry, moving all 4 limbs Rest of the exam per pulmonary and nursing INVESTIGATIONS, reviewed in the clinical context: January 10: D-dimer 0.74 CRP 5.9 WBC 7.7 hemoglobin 14.7 platelets 212 sodium 133 potassium 4.3 BUN 15 creatinine 0.8 AST 122 ALT 92 UA positive for protein trace. Ketone 2+ Chest x-ray film personally reviewed by me-bilateral infiltrates Assessment and plan: -Acute bilateral COVID-19 pneumonitis, in a patient who did not take the vaccine. Symptoms have been present for about 11 days prior to admission: Slow to respond. Dexamethasone 6 mg. Vitamin C vitamin D zinc. Subcu Lovenox -Acute hypoxic respiratory failure from COVID-19 pneumonitis: Slow to respond Oxygen 4 L. Titrate to keep the pulse ox between 92-96%. Incentive spirometry. -Acute medical asthenia from COVID-19 Up in chair, activity as tolerated -Acute Aguesis, and anosmia from COVID-19 -Primary osteoarthritis multiple joints bilaterally Pain medications as needed -Acute insomnia from COVID-19 Melatonin as needed -Clinical dehydration Lactated Ringer's -Mild hyponatremia from decrease for intake IV fluids Decadron. Oxygen. . Incentive spirometry. At the patient sit up in a chair. Discussed with patient
[2021-01-10] MEDS: LACTATED RINGERS 1,000 ML IV SCH (18:11)
[2021-01-10] MEDS: ZINC SULFATE 220 MG CAP PO SCH (21:35)
[2021-01-11] MEDS: ACETAMINOPHEN TAB 325 MG TAB PO PRN ×2 (08:26→22:35)
[2021-01-11] MEDS: MULTIVITAMINS, THERA 1 EACH TAB PO SCH (08:27)
[2021-01-11] MEDS: ENOXAPARIN 40 MG/0.4 ML SYRINGE SQ SCH (08:27)
[2021-01-11] MEDS: DEXAMETHASONE SOD PHOSPHATE 10 MG/ML 1 ML VIAL IVP SCH (08:27)
[2021-01-11] MEDS: ASCORBIC ACID 500 MG TAB PO SCH (08:27)
[2021-01-11] MEDS: CHOLECALCIFEROL 25 MCG (1000 IU) TABLET PO SCH (08:27)
--- NOTE | 2021-01-11 13:27 | P.PN ---
Subjective Progress Note Date: 01/11/21 Principal diagnosis: COVID-19 pneumonia This is a 75-year-old male patient who follows with Dr. Umana as his primary care provider. He has no significant past medical history. He had presented to the emergency room on 01/04/2021 with complaints of body aches loss of taste and s jonh and shortness of breath. He did test positive for COVID-19 and was given monoclonal antibodies. The patient is not vaccinated. He returned here to the emergency room last evening with worsening shortness of breath, cough and congestion. He has generalized aches and pains. His O2 saturation did drop at home into the 80s. He was 90% here on room air at rest. Currently in the low 90s on 3 L/m per nasal cannula. He is afebrile. Chest x-ray shows new peripheral multifocal bilateral opacities compared to chest x-ray on 01/05/2021. Count 7.7. Hemoglobin 14.7. Lymphocytes 0.4. Sodium 133. Potassium 4.3. Creatinine 0.80. AST 122. ALT 92. Ceballos virus positive on 01/04/2021. He states his symptoms started several days prior to that. Outside the window for Remdesivir. He is receiving fluids 0.9 normal saline at 130 ML's per hour. He is seen today in consultation in the emergency room. He is currently resting fairly comfortably on a stretcher. Not feeling much improvement today compared to yesterday. His main complaint currently is nausea. On 01/10/2021 patient seen in follow-up on medical surgical floor. He is on 4 L of oxygen pulse ox is 97%, short of breath with exertion, but overall he states he feels somewhat better compared to when he came in. Does have a cough, overall feels very fatigued, he is having on and off headaches. No fever or chills, vital signs have been stable, breathing is nonlabored. His d-dimer today is 0.74, CRP is 5.9, troponin was negative at less than 0.012. Patient continues on Decadron 6 mg daily, Lovenox 40 mg daily, lactated Ringer 70-75 ML per hour, and creatinine 19 and vitamins including vitamin C, vitamin D, and zi nc The patient is seen today 01/11/2021 in follow-up on the regular medical floor. He is currently sitting up in a chair at the bedside. Awake and alert in no acute distress. Maintaining O2 saturations in the 90s were liters per minute per nasal cannula. Denies any worsening shortness of breath cough or congestion. Some weakness and fatigue. He is continued on Decadron, Lovenox, vitamin supplements Objective - Vital Signs Vital signs: Vital Signs Temp 98.3 F 01/11/21 10:00 Pulse 63 01/11/21 10:00 Resp 18 01/11/21 10:00 BP 98/62 01/11/21 10:00 Pulse Ox 97 01/11/21 10:00 Intake & Output 01/10/21 01/11/21 01/11/21 18:59 06:59 18:59 Intake Total 960 Output Total 450 625 Balance -450 960 -625 Intake: Oral 960 Output: Urine 450 625 Other: Voiding Method Toilet Toilet Urinal Urinal # Voids 3 2 - Exam GENERAL EXAM: Alert, 75-year-old gentleman, 4 L nasal cannula, comfortable in no apparent distress. HEAD: Normocephalic. EYES: Normal reaction of pupils, equal size. NOSE: Clear with pink turbinates. THROAT: No erythema or exudates. NECK: No masses, no JVD. CHEST: No chest wall deformity. LUNGS: Equal air entry with faint crackles in the posterior bases. CVS: S1 and S2 normal with no audible murmur, regular rhythm. ABDOMEN: No hepatosplenomegaly, normal bowel sounds, no guarding or rigidity. SPINE: No scoliosis or deformity SKIN: No rashes CENTRAL NERVOUS SYSTEM: No focal deficits, tone is normal in all 4 extremities. EXTREMITIES: There is no peripheral edema. No clubbing, no cyanosis. Peripheral pulses are intact. - Labs CBC & Chem 7: 01/08/21 16:16 01/08/21 16:16 Assessment and Plan Assessment: 1 Acute hypoxemic respiratory failure secondary to COVID-19 pneumonia. The patient is not vaccinated. He did receive monoclonal antibodies on 01/04/2021. Symptoms started several days prior to that. Outside the window for Remdesivir. 2 Mildly elevated LFTs 3 Lymphocytopenia secondary to above Plan: The patient was seen and evaluated by Dr. Jean-Baptiste Currently stable from the pulmonary standpoint Could be discharged home today on oxygen I, the cosigning physician, performed a history & physical examination of the patient. Lungs sounds crackles in the bilateral bases. Maintaining good O2 saturations in the 90s on 4 L/m per nasal cannula. I discussed the assessment and plan of care with my nurse practitioner, Geri Enrique. I attest to the above note as dictated by her.
--- NOTE | 2021-01-11 14:43 | P.PN ---
Progress Note - Text Progress Note Date: 01/11/21 Chief Complaint: Short of breath This is a pleasant 75-year-old patient of Dr. Umana. Has no reported medical history. Patient did not take the vaccine for COVID-19. Around December 27 patient started having symptoms. Patient's had progressive cough. Short of breath. Decreased appetite. Loss of smell and taste. Also diarrhea with Acticoat bed in the last 24 hours. Has had headaches and fevers. Not sleeping well. Patient has chronic pain in the joints. Patient received monoclonal antibodies here at [facility] on January 04. Symptoms progressed to get worse. Feeling weak diet and rundown. Admitted with acute COVID-19 pneumonitis, acute hypoxic respiratory failure, acute asthenia, dehydration, acute medical debility. Started on dexamethasone, subcu Lovenox, IV fluids. January 10: Tired, laying in bed. Eating some. Short of breath. Some cough. Requested the patient sit up in a chair. January 11: Sitting up in bed. Did sit on the chair yesterday. Eating a bit better. Short of breath. 4 L nasal cannula. Tired Review of systems: Was done for constitutional, cardiovascular, GI, pulmonary. relevant finding as above Active Medications Acetaminophen (Acetaminophen Tab 325 Mg Tab) 650 mg PO Q6HR PRN PRN Reason: Mild Pain or Fever > 100.5 Last Admin: 01/11/21 08:26 Dose: 650 mg Documented by: Ascorbic Acid (Ascorbic Acid 500 Mg Tab) 1,000 mg PO DAILY [facility] Last Admin: 01/11/21 08:27 Dose: 1,000 mg Documented by: Cholecalciferol (Cholecalciferol 25 Mcg (1000 Iu) Tablet) 100 mcg PO DAILY [facility] Last Admin: 01/11/21 08: Dose: 100 mcg Documented by: Dexamethasone Sodium Phosphate (Dexamethasone Sod Phosphate 10 Mg/Ml 1 Ml Vial) 6 mg IVP DAILY [facility] Last Admin: 01/11/21 08: Dose: 6 mg Documented by: Enoxaparin Sodium (Enoxaparin 40 Mg/0.4 Ml Syringe) 40 mg SQ DAILY [facility] Last Admin: 01/11/21 08: Dose: 40 mg Documented by: Lactated Ringer's (Lactated Ringers) 1,000 mls @ 75 mls/hr IV .[id number] [facility] Last Admin: 01/10/21 18:11 Dose: Not Given Documented by: Multivitamins (Multivitamins, Thera 1 Each Tab) 1 each PO DAILY [facility] Last Admin: 01/11/21 08:27 Dose: 1 each Documented by: Naloxone HCl (Naloxone 0.4 Mg/Ml 1 Ml Vial) 0.2 mg IV Q2M PRN PRN Reason: Opioid Reversal Zinc Sulfate (Zinc Sulfate 220 Mg Cap) 220 mg PO HS [facility] Last Admin: 01/10/21 21:35 Dose: 220 mg Documented by: Past medical history to include: Unremarkable 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 . No smoking. Alcohol occasionally. Family history: Reviewed, noncontributory to presentation Physical examination: VITAL SIGNS: 98.3, 63, 18, 98 x 62, 97% on 4 L GENERAL: Laying in bed, awake, tired LUNGS: Respiratory rate increased, PSYCH: Alert and oriented x3; mood and affect tired. MUSCULAR skeletal: Evidence of OA NEUROLOGICAL: Cranial nerves grossly intact; no facial asymmetry, moving all 4 limbs Rest of the exam per pulmonary and nursing INVESTIGATIONS, reviewed in the clinical context: January 10: D-dimer 0.74 CRP 5.9 WBC 7.7 hemoglobin 14.7 platelets 212 sodium 133 potassium 4.3 BUN 15 creatinine 0.8 AST 122 ALT 92 UA positive for protein trace. Ketone 2+ Chest x-ray film personally reviewed by me-bilateral infiltrates Assessment and plan: -Acute bilateral COVID-19 pneumonitis, in a patient who did not take the vaccine. Symptoms have been present for about 11 days prior to admission: Slow to respond. Dexamethasone 6 mg. Vitamin C vitamin D zinc. Subcu Lovenox -Acute hypoxic respiratory failure from COVID-19 pneumonitis: Slow to respond Oxygen 4 L. Titrate to keep the pulse ox between 92-96%. Incentive spirometry. -Acute medical asthenia from COVID-19 activity as tolerated -Acute Aguesis, and anosmia from COVID-19 -Primary osteoarthritis multiple joints bilaterally Pain medications as needed -Acute insomnia from COVID-19 Melatonin as needed -Clinical dehydration Lactated Ringer's -Mild hyponatremia from decrease for intake IV fluids Decadron. Oxygen. . Incentive spirometry. Repeat labs. Increase activity. Oxygen 4 L.
[2021-01-11] MEDS: LACTATED RINGERS 1,000 ML IV SCH ×2 (19:52→19:56)
[2021-01-11] MEDS: ZINC SULFATE 220 MG CAP PO SCH (22:34)
[2021-01-12 06:16] LABS: African American GFR (CKD) >90 (>60 ml/min/1.73 sqM); Anion Gap 5 mmol/L; Blood Urea Nitrogen 17 mg/dL (9-20); C Reactive Protein 4.7 mg/dL (<1.0); Calcium 8.4 mg/dL (8.4-10.2); Carbon Dioxide 22 mmol/L (22-30); Chloride 109 mmol/L (98-107); Glucose 109 mg/dL (74-99); Non-African American GFR(CKD) 85 (>60 ml/min/1.73 sqM); Potassium 4.2 mmol/L (3.5-5.1); Sodium 136 mmol/L (137-145)
[2021-01-12] MEDS: MULTIVITAMINS, THERA 1 EACH TAB PO SCH (07:56)
[2021-01-12] MEDS: ASCORBIC ACID 500 MG TAB PO SCH (07:56)
[2021-01-12] MEDS: ENOXAPARIN 40 MG/0.4 ML SYRINGE SQ SCH (07:56)
[2021-01-12] MEDS: ACETAMINOPHEN TAB 325 MG TAB PO PRN (07:56)
[2021-01-12] MEDS: CHOLECALCIFEROL 25 MCG (1000 IU) TABLET PO SCH (07:56)
[2021-01-12] MEDS: DEXAMETHASONE SOD PHOSPHATE 10 MG/ML 1 ML VIAL IVP SCH (07:57)
--- NOTE | 2021-01-12 11:51 | P.PN ---
Progress Note - Text Progress Note Date: 01/12/21 Chief Complaint: Short of breath This is a pleasant 75-year-old patient of Dr. Umana. Has no reported medical history. Patient did not take the vaccine for COVID-19. Around December 27 patient started having symptoms. Patient's had progressive cough. Short of breath. Decreased appetite. Loss of smell and taste. Also diarrhea with Acticoat bed in the last 24 hours. Has had headaches and fevers. Not sleeping well. Patient has chronic pain in the joints. Patient received monoclonal antibodies here at [facility] on January 04. Symptoms progressed to get worse. Feeling weak diet and rundown. Admitted with acute COVID-19 pneumonitis, acute hypoxic respiratory failure, acute asthenia, dehydration, acute medical debility. Started on dexamethasone, subcu Lovenox, IV fluids. January 10: Tired, laying in bed. Eating some. Short of breath. Some cough. Requested the patient sit up in a chair. January 11: Sitting up in bed. Did sit on the chair yesterday. Eating a bit better. Short of breath. 4 L nasal cannula. Tired January 12: Tired. Short of breath. 4 L nasal cannula. Eating okay. Review of systems: Was done for constitutional, cardiovascular, GI, pulmonary. relevant finding as above Active Medications Acetaminophen (Acetaminophen Tab 325 Mg Tab) 650 mg PO Q6HR PRN PRN Reason: Mild Pain or Fever > 100.5 Last Admin: 01/12/21 07:56 Dose: 650 mg Documented by: Ascorbic Acid (Ascorbic Acid 500 Mg Tab) 1,000 mg PO DAILY [facility] Last Admin: 01/12/21 07:56 Dose: 1,000 mg Documented by: Cholecalciferol (Cholecalciferol 25 Mcg (1000 Iu) Tablet) 100 mcg PO DAILY [facility] Last Admin: 01/12/21 07:56 Dose: 100 mcg Documented by: Dexamethasone Sodium Phosphate (Dexamethasone Sod Phosphate 10 Mg/Ml 1 Ml Vial) 6 mg IVP DAILY [facility] Last Admin: 01/12/21 07:57 Dose: 6 mg Documented by: Enoxaparin Sodium (Enoxaparin 40 Mg/0.4 Ml Syringe) 40 mg SQ DAILY [facility] Last Admin: 01/12/21 07:56 Dose: 40 mg Documented by: Lactated Ringer's (Lactated Ringers) 1,000 mls @ 75 mls/hr IV .[id number] [facility] Last Admin: 01/11/21 19:56 Dose: Not Given Documented by: Multivitamins (Multivitamins, Thera 1 Each Tab) 1 each PO DAILY [facility] Last Admin: 01/12/21 07:56 Dose: 1 each Documented by: Naloxone HCl (Naloxone 0.4 Mg/Ml 1 Ml Vial) 0.2 mg IV Q2M PRN PRN Reason: Opioid Reversal Zinc Sulfate (Zinc Sulfate 220 Mg Cap) 220 mg PO HS [facility] Last Admin: 01/11/21 22:34 Dose: 220 mg Documented by: Past medical history to include: Unremarkable 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 . No smoking. Alcohol occasionally. Family history: Reviewed, noncontributory to presentation Physical examination: VITAL SIGNS: 97.6, 77, 18, 1:30 with 79, 91% on 4 L GENERAL: Laying in bed, awake, tired LUNGS: Respiratory rate increased, PSYCH: Alert and oriented x3; mood and affect tired. MUSCULAR skeletal: Evidence of OA NEUROLOGICAL: Cranial nerves grossly intact; no facial asymmetry, moving all 4 limbs Rest of the exam per pulmonary and nursing INVESTIGATIONS, reviewed in the clinical context: January 12: D-dimer 1.19 potassium 4.2 creatinine 0.85 CRP 4.7 January 10: D-dimer 0.74 CRP 5.9 WBC 7.7 hemoglobin 14.7 platelets 212 sodium 133 potassium 4.3 BUN 15 creatinine 0.8 AST 122 ALT 92 UA positive for protein trace. Ketone 2+ Chest x-ray film personally reviewed by me-bilateral infiltrates Assessment and plan: -Acute bilateral COVID-19 pneumonitis, in a patient who did not take the vaccine. Symptoms have been present for about 11 days prior to admission: Slow to respond. Dexamethasone 6 mg. Vitamin C vitamin D zinc. Subcu Lovenox -Acute hypoxic respiratory failure from COVID-19 pneumonitis: Slow to respond Oxygen 4 L. Titrate to keep the pulse ox between 92-96%. Incentive spirometry. -Acute medical asthenia from COVID-19 activity as tolerated -Acute Aguesis, and anosmia from COVID-19 -Primary osteoarthritis multiple joints bilaterally Pain medications as needed -Acute insomnia from COVID-19 Melatonin as needed -Clinical dehydration Lactated Ringer's. Decrease IV fluids -Mild hyponatremia from decrease for intake IV fluids Decadron. Cutback IV fluids. Incentive spirometry. Repeat labs. Increase activity. Oxygen 4 L.
[2021-01-12] MEDS: LACTATED RINGERS 1,000 ML IV SCH ×2 (20:10→20:56)
[2021-01-12] MEDS: ZINC SULFATE 220 MG CAP PO SCH (20:56)
[2021-01-13] MEDS: CHOLECALCIFEROL 25 MCG (1000 IU) TABLET PO SCH (08:17)
[2021-01-13] MEDS: MULTIVITAMINS, THERA 1 EACH TAB PO SCH (08:18)
[2021-01-13] MEDS: DEXAMETHASONE SOD PHOSPHATE 10 MG/ML 1 ML VIAL IVP SCH (08:18)
[2021-01-13] MEDS: ENOXAPARIN 40 MG/0.4 ML SYRINGE SQ SCH (08:18)
[2021-01-13] MEDS: ASCORBIC ACID 500 MG TAB PO SCH (08:18)
[2021-01-13] MEDS: ACETAMINOPHEN TAB 325 MG TAB PO PRN (08:18)
--- NOTE | 2021-01-13 16:37 | P.PN ---
Progress Note - Text Progress Note Date: 01/13/21 Chief Complaint: Short of breath This is a pleasant 75-year-old patient of Dr. Umana. Has no reported medical history. Patient did not take the vaccine for COVID-19. Around December 27 patient started having symptoms. Patient's had progressive cough. Short of breath. Decreased appetite. Loss of smell and taste. Also diarrhea with Acticoat bed in the last 24 hours. Has had headaches and fevers. Not sleeping well. Patient has chronic pain in the joints. Patient received monoclonal antibodies here at [facility] on January 04. Symptoms progressed to get worse. Feeling weak diet and rundown. Admitted with acute COVID-19 pneumonitis, acute hypoxic respiratory failure, acute asthenia, dehydration, acute medical debility. Started on dexamethasone, subcu Lovenox, IV fluids. January 10: Tired, laying in bed. Eating some. Short of breath. Some cough. Requested the patient sit up in a chair. January 11: Sitting up in bed. Did sit on the chair yesterday. Eating a bit better. Short of breath. 4 L nasal cannula. Tired January 12: Tired. Short of breath. 4 L nasal cannula. Eating okay. January 13: Sitting up in a chair. Oral intake good. 90% on 4 L. At the nurse titrate oxygen to acute the pulse ox above 92%. Shortness of breath. Review of systems: Was done for constitutional, cardiovascular, GI, pulmonary. relevant finding as above Active Medications Acetaminophen (Acetaminophen Tab 325 Mg Tab) 650 mg PO Q6HR PRN PRN Reason: Mild Pain or Fever > 100.5 Last Admin: 01/13/21 08:18 Dose: 650 mg Documented by: Ascorbic Acid (Ascorbic Acid 500 Mg Tab) 1,000 mg PO DAILY [facility] Last Admin: 01/13/21 08:18 Dose: 1,000 mg Documented by: Cholecalciferol (Cholecalciferol 25 Mcg (1000 Iu) Tablet) 100 mcg PO DAILY [facility] Last Admin: 01/13/21 08:17 Dose: 100 mcg Documented by: Dexamethasone Sodium Phosphate (Dexamethasone Sod Phosphate 10 Mg/Ml 1 Ml Vial) 6 mg IVP DAILY [facility] Last Admin: 01/13/21 08:18 Dose: 6 mg Documented by: Enoxaparin Sodium (Enoxaparin 40 Mg/0.4 Ml Syringe) 40 mg SQ DAILY [facility] Last Admin: 01/13/21 08:18 Dose: 40 mg Documented by: Lactated Ringer's (Lactated Ringers) 1,000 mls @ 20 mls/hr IV .Q24H [facility] Last Admin: 01/12/21 20:56 Dose: 20 mls/hr Documented by: Multivitamins (Multivitamins, Thera 1 Each Tab) 1 each PO DAILY [facility] Last Admin: 01/13/21 08:18 Dose: 1 each Documented by: Naloxone HCl (Naloxone 0.4 Mg/Ml 1 Ml Vial) 0.2 mg IV Q2M PRN PRN Reason: Opioid Reversal Zinc Sulfate (Zinc Sulfate 220 Mg Cap) 220 mg PO HS [facility] Last Admin: 01/12/21 20:56 Dose: 220 mg Documented by: Past medical history to include: Unremarkable 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 . No smoking. Alcohol occasionally. Family history: Reviewed, noncontributory to presentation Physical examination: VITAL SIGNS: 98.2, 60, 20, 104/66, 90% on 4 L GENERAL: Sitting up in a chair, eating LUNGS: Respiratory rate increased, PSYCH: Alert and oriented x3; mood and affect tired. MUSCULAR skeletal: Evidence of OA NEUROLOGICAL: Cranial nerves grossly intact; no facial asymmetry, moving all 4 limbs Rest of the exam per pulmonary and nursing INVESTIGATIONS, reviewed in the clinical context: January 13: D-dimer 4.9 to CRP 5.4 January 12: D-dimer 1.19 potassium 4.2 creatinine 0.85 CRP 4.7 January 10: D-dimer 0.74 CRP 5.9 WBC 7.7 hemoglobin 14.7 platelets 212 sodium 133 potassium 4.3 BUN 15 creatinine 0.8 AST 122 ALT 92 UA positive for protein trace. Ketone 2+ Chest x-ray film personally reviewed by me-bilateral infiltrates Assessment and plan: -Acute bilateral COVID-19 pneumonitis, in a patient who did not take the vaccine. Symptoms have been present for about 11 days prior to admission: Slow to respond. Dexamethasone 6 mg. Vitamin C vitamin D zinc. Subcu Lovenox -Acute hypoxic respiratory failure from COVID-19 pneumonitis: Slow to respond Oxygen 4 L. Titrate to keep the pulse ox between 92-96%. Incentive spirometry. -Acute medical asthenia from COVID-19 activity as tolerated -Acute Aguesis, and anosmia from COVID-19 -Primary osteoarthritis multiple joints bilaterally Pain medications as needed -Acute insomnia from COVID-19 Melatonin as needed -Clinical dehydration Lactated Ringer's. Decrease IV fluids -Mild hyponatremia from decrease for intake: Better IV fluids. Oral intake better. Decadron. . Incentive spirometry. Repeat labs. Increase activity. Discussed with patient. Continue current treatment plan.
[2021-01-13] MEDS: ZINC SULFATE 220 MG CAP PO SCH (20:13)
[2021-01-13] MEDS: LACTATED RINGERS 1,000 ML IV SCH (21:09)
--- NOTE | 2021-01-13 21:39 | US ---
EXAMINATION TYPE: US venous doppler duplex LE DATE OF EXAM: 01/13/2021 9:11 PM COMPARISON: NONE CLINICAL HISTORY: r/o dvt. COVID SIDE PERFORMED: Bilateral TECHNIQUE: The lower extremity deep venous system is examined utilizing real time linear array sonog jorge with graded compression, doppler sonography and color-flow sonography. VESSELS IMAGED: Common Femoral Vein Deep Femoral Vein Greater Saphenous Vein * Femoral Vein Popliteal Vein Small Saphenous Vein * Proximal Calf Veins (* superficial vessels) Right Leg: no evidence of DVT Left Leg: no evidence of DVT IMPRESSION: No evidence of deep vein thrombosis in both legs.
[2021-01-14] MEDS: ASCORBIC ACID 500 MG TAB PO SCH (08:23)
[2021-01-14] MEDS: MULTIVITAMINS, THERA 1 EACH TAB PO SCH (08:23)
[2021-01-14] MEDS: CHOLECALCIFEROL 25 MCG (1000 IU) TABLET PO SCH (08:23)
[2021-01-14] MEDS: DEXAMETHASONE SOD PHOSPHATE 10 MG/ML 1 ML VIAL IVP SCH (08:23)
[2021-01-14] MEDS: ACETAMINOPHEN TAB 325 MG TAB PO PRN (08:24)
[2021-01-14] MEDS: ENOXAPARIN 40 MG/0.4 ML SYRINGE SQ SCH (08:24)
--- NOTE | 2021-01-14 10:10 | P.CRDCN ---
History of Present Illness Consult date: 01/14/21 History of present illness: CHIEF COMPLAINT: V. tach HISTORY OF PRESENT ILLNESS: This is a 75-year-old male with a past medical history significant for osteoarthritis. 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 We have been asked to see the patient in consultation for ventricular tachycardia. The patient is currently admitted to the hospital secondary to COVID-19. Patient is currently on 4 L nasal cannula with oxygen saturations greater than 90%. Blood pressure 101/56. Heart rate is in the 70s. Telemetry reveals sinus mechanism. Upon review of telemetry, the patient is not having runs of ventricular tachycardia. He is having occasional PVCs. Chest x-ray obtained reveals stable left basilar opacities. No peripheral multifocal right mid to lower lung opacities. Findings likely product of known COVID-19 infection. Lower extremity Doppler obtained with no evidence of DVT bilaterally. Laboratory data reviewed revealing WBC 7.7. Hemoglobin 14.7. Pletal count 212. D-dimer 4.92. Sodium 136. Potassium 4.2. BUN 17. Creatinine 0.85. Magnesium 1.9. Troponin negative 1. REVIEW OF SYSTEMS: Thorough review of systems not completed secondary to limited evaluation/examination due to Covid19 PHYSICAL EXAM: Thorough physical exam not completed secondary to limited evaluation/examination due to Covid19 ASSESSMENT: Covid 19 Acute hypoxic respiratory failure Occasional PVCs Osteoarthritis PLAN: 2D echo ordered. Await results. Continue telemetry monitoring. Further recommendations pending evaluation by Dr. Dos Santos. Nurse practitioner note has been reviewed by physician. Signing provider agrees with the documented findings, assessment, and plan of care. Past Medical History Past Medical History: No Reported History History of Any Multi-Drug Resistant Organisms: None Reported Past Surgical History: Hernia Repair, Orthopedic Surgery, Tonsillectomy Additional Past Surgical History / Comment(s): thumb joint bilat, abdominal wall tumor removed, scrotal vein surgery Past Anesthesia/Blood Transfusion Reactions: No Reported Reaction Past Psychological History: No Psychological Hx Reported Smoking Status: Never smoker Past Alcohol Use History: None Reported Past Drug Use History: None Reported - Past Family History Father Family Medical History: Congestive Heart Failure (CHF) Medications and Allergies Home Medications Medication Instructions Recorded Confirmed Type Ascorbic Acid [Vitamin C] 1,000 mg PO DAILY 01/04/21 01/08/21 History Cetirizine HCl 10 mg PO DAILY PRN 01/04/21 01/08/21 History Cholecalciferol [Vitamin D3 (25 25 mcg PO DAILY 01/04/21 01/08/21 History Mcg = 1000 Iu)] Multivitamins, Thera [Multivitamin 1 tab PO DAILY 01/04/21 01/08/21 History (formulary)] Vitamin B Complex 1 cap PO DAILY 01/04/21 01/08/21 History Zinc Gluconate [Zinc] 50 mg PO HS 01/04/21 01/08/21 History Acetaminophen Tab [Tylenol Tab] 500 mg PO Q6H PRN 01/08/21 01/08/21 History Allergies Allergy/AdvReac Type Severity Reaction Status Date / Time No Known Allergies Allergy Verified 01/08/21 17:54 Physical Exam Vitals: Vital Signs Temp Pulse Resp BP Pulse Ox 01/14/21 05:42 97.9 F 78 101/56 91 L 01/14/21 01:31 98.2 F 60 19 100/58 92 L 01/13/21 22:00 97.9 F 83 20 125/73 91 L 01/13/21 20:00 72 16 01/13/21 18:00 98.1 F 65 20 103/61 96 01/13/21 14:00 98.2 F 72 18 107/68 96 Intake and Output 01/13/21 01/14/21 01/14/21 22:59 06:59 14:59 Intake Total 680 300 Output Total 300 500 Balance 380 -200 Intake: Intake, IV Titration 200 Amount Lactated Ringers 1,000 ml 200 @ 20 mls/hr IV .Q24H [facility] Rx#:[id number] Oral 480 300 Output: Urine 300 500 Other: # Voids 1 Results 01/08/21 16:16 01/12/21 05:33 Current Medications Generic Name Dose Route Start Last Admin Trade Name Freq PRN Reason Stop Dose Admin Acetaminophen 650 mg 01/08/21 19:33 01/14/21 08:24 Acetaminophen Tab 325 Mg Tab PO 650 mg Q6HR PRN Administration Mild Pain or Fever > 100.5 Ascorbic Acid 1,000 mg 01/09/21 10:45 01/14/21 08:23 Ascorbic Acid 500 Mg Tab PO 1,000 mg DAILY [facility] Administration Cholecalciferol 100 mcg 01/09/21 10:45 01/14/21 08:23 Cholecalciferol 25 Mcg (1000 Iu) Tablet PO 100 mcg DAILY [facility] Administration Dexamethasone Sodium Phosphate 6 mg 01/09/21 09:00 01/14/21 08:23 Dexamethasone Sod Phosphate 10 Mg/Ml 1 Ml Vial IVP 6 mg DAILY [facility] Administration Enoxaparin Sodium 40 mg 01/09/21 09:00 01/14/21 08:24 Enoxaparin 40 Mg/0.4 Ml Syringe SQ 40 mg DAILY [facility] Administration Lactated Ringer's 1,000 mls @ 20 mls/hr 01/09/21 14:00 01/13/21 21:09 Lactated Ringers IV 20 mls/hr .Q24H [facility] Administration Multivitamins 1 each 01/09/21 10:45 01/14/21 08:23 Multivitamins, Thera 1 Each Tab PO 1 each DAILY [facility] Administration Naloxone HCl 0.2 mg 01/08/21 19:55 Naloxone 0.4 Mg/Ml 1 Ml Vial IV Q2M PRN Opioid Reversal Zinc Sulfate 220 mg 01/09/21 21:00 01/13/21 20:13 Zinc Sulfate 220 Mg Cap PO 220 mg HS [facility] Administration Intake and Output 01/13/21 01/14/21 01/14/21 22:59 06:59 14:59 Intake Total 680 300 Output Total 300 500 Balance 380 -200 Intake: Intake, IV Titration 200 Amount Lactated Ringers 1,000 ml 200 @ 20 mls/hr IV .Q24H [facility] Rx#:[id number] Oral 480 300 Output: Urine 300 500 Other: # Voids 1 01/08/21 16:16 01/12/21 05:33
--- NOTE | 2021-01-14 12:30 | ECHOF ---
Referral Reason:runs MEASUREMENTS -------- HEIGHT: 170.2 cm WEIGHT: 72.6 kg BP: 104/66 RVIDd: 3.3 cm (< 3.3) IVSd: 0.8 cm (0.6 - 1.1) LVIDd: 4.7 cm (3.9 - 5.3) LVPWd: 0.9 cm (0.6 - 1.1) IVSs: 1.6 cm LVIDs: 2.7 cm LVPWs: 1.6 cm LA Diam: 3.7 cm (2.7 - 3.8) LAESV Index (A-L): 28.27 ml/m Ao Diam: 3.5 cm (2.0 - 3.7) AV Cusp: 2.5 cm (1.5 - 2.6) MV EXCURSION: 16.312 mm (> 18.000) MV EF SLOPE: 34 mm/s (70 - 150) EPSS: 0.6 cm MV E Balta: 0.65 m/s MV DecT: 273 ms MV A Balta: 0.70 m/s MV E/A Ratio: 0.92 RAP: 5.00 mmHg RVSP: 22.41 mmHg TAPSE: 23.43 mm FINDINGS -------- Sinus rhythm. This was a technically good study. The left ventricular size is normal. Left ventricular wall thickness is normal. Overall left vent ricular systolic function is normal with, an EF between 60 - 65 %. The right ventricle is mildly enlarged. Normal LA size by volume 22+/-6 ml/m2. The right atrium is normal in size. Interatrial and interventricular septum intact. The aortic valve is trileaflet, and appears structurally normal. No aortic stenosis or regurgitation. Mild mitral regurgitation is present. Mild tricuspid regurgitation present. Right ventricular systolic pressure is normal at < 35 mmHg. There is no pulmonic regurgitation present. The aortic root size is normal. Normal inferior vena cava with normal inspiratory collapse consistent with estimated right atrial pre ssure of 5 mmHg. There is no pericardial effusion. CONCLUSIONS -------- 1. The left ventricular size is normal. 2. Left ventricular wall thickness is normal. 3. Overall left ventricular systolic function is normal with, an EF between 60 - 65 %. 4. The right ventricle is mildly enlarged. 5. The aortic valve is trileaflet, and appears structurally normal. No aortic stenosis or regurgitati on. 6. Mild mitral regurgitation is present. 7. Mild tricuspid regurgitation present. 8. There is no pericardial effusion. HEAD GREASE MAKER: Beth Farah RDCS
--- NOTE | 2021-01-14 13:15 | P.PN ---
Subjective This is a pleasant 75 years old male with significant many past medical problems except osteoarthritis. Presents with respiratory symptoms found to have bilateral covert pneumonia and hypoxia, his been evaluated by pulmonary service and treated with dexamethasone, vitamin C, vitamin D and zinc. Also he was placed on Pepcid and Lovenox for DVT prophylaxis per protocol. He was doing well and was cleared for discharge by pulmonary service however his d-dimer went up 1.1 to 4.9. However patient with no worsening respiratory symptoms. Doppler of the lower extremity was checked and it was negative. Because of persistent hypoxia the patient about the possibility of pulmonary embolism although the suspicion felt low, and after discussed with him next step he declined to do CTA of the chest to rule out PE because he did not want to expose himself to the risk of nephrotoxicity, however he agrees to the VQ scan which is ordered. Also cardiology team are following the patient as been then were consulted for runs of cardiac arrhythmia. Echocardiogram still pending He denies any other symptoms. Hemodynamically stable. Other labs looks stable as well. Currently on dexamethasone, and multiple vitamins as above. Lovenox and Pepcid Objective - Vital Signs Vital signs: Vital Signs Temp 97.7 F 01/14/21 10:00 Pulse 62 01/14/21 10:00 Resp 18 01/14/21 10:00 BP 96/59 01/14/21 10:00 Pulse Ox 98 01/14/21 10:00 Intake & Output 01/13/21 01/14/21 01/14/21 18:59 06:59 18:59 Intake Total 680 300 Output Total 800 400 Balance 680 -500 -400 Intake: Intake, IV Titration 200 Amount Lactated Ringers 1,000 ml 200 @ 20 mls/hr IV .Q24H [facility] Rx#:[id number] Oral 480 300 Output: Urine 800 400 Other: # Voids 1 - Exam GENERAL: The patient is alert and oriented x3, not in any acute distress. Well developed, well nourished. HEENT: Pupils are round and equally reacting to light. EOMI. No scleral icterus. No conjunctival pallor. Normocephalic, atraumatic. No pharyngeal erythema. No thyromegaly. CARDIOVASCULAR: S1 and S2 present. No murmurs, rubs, or gallops. PULMONARY: Chest is clear to auscultation, no wheezing or crackles. ABDOMEN: Soft, nontender, nondistended, normoactive bowel sounds. No palpable organomegaly. MUSCULOSKELETAL: No joint swelling or deformity. EXTREMITIES: No cyanosis, clubbing, or pedal edema. NEUROLOGICAL: Gross neurological examination did not reveal any focal deficits. SKIN: No rashes. no petechiae. - Labs CBC & Chem 7: 01/08/21 16:16 01/12/21 05:33 Assessment and Plan Assessment: Bilateral Covid pneumonia Acute hypoxic respiratory failure Increased inflammatory markers Possible episodes of ventricular tachycardia Elevated d-dimer with negative Doppler ultrasound of the legs for DVT. History of osteoarthritis Plan: This is a pleasant 75 years old male who presents with covid pneumonia, possible cardiac arrhythmia and elevated d-dimer Continue with dexamethasone Continue with vitamin C, vitamin D and zinc Pulmonary consult has cleared the patient for discharge Follow-up result of VQ scan which is ordered Follow-up echocardiogram Cardiology consult Labs and medication were reviewed.. Continue same treatment. Continue with symptomatic treatment. Resume home medication. Monitor lytes and vitals. DVT and GI prophylaxis. Further recommendationsas per clinical course of the patient DVT prophylaxis: Subcutaneous heparin GI Prophylaxis: Pepcid
--- NOTE | 2021-01-14 13:46 | NM ---
EXAMINATION TYPE: NM pul perfusion DATE OF EXAM: 01/14/2021 COMPARISON: NONE HISTORY: high ddimer Following administration of 4.5 mCi Tc 99m MAA. Images obtained post injection. FINDINGS: There is patchy uptake seen throughout the upper mid lung zones on the perfusion study. IMPRESSION: Intermediate to high probability for pulmonary embolism on this perfusion only study.
[2021-01-14] MEDS: SODIUM CHLORIDE 0.9% 1,000 ML IV SCH (14:26)
[2021-01-14] MEDS: METOPROLOL TARTRATE 12.5 MG TAB PO SCH (14:27)
[2021-01-14 15:50] VITALS: BMI 25.0
--- NOTE | 2021-01-14 16:07 | CT ---
EXAMINATION TYPE: CT angio chest DATE OF EXAM: 01/14/2021 COMPARISON: Perfusion scan same date HISTORY: Shortness of breath CT DLP: 269.3 mGycm Automated exposure control for dose reduction was used. CONTRAST: CTA scan of the thorax is performed with IV Contrast, patient injected with 100 mL of Isovue 370, pul monary embolism protocol. MIP images are created and reviewed. 3D reconstructed images are created on an independent workstation and reviewed. FINDINGS: LUNGS: The lungs are remarkable for bilateral areas of groundglass opacity, airspace disease with ass ociated air bronchograms. There is a nodule in the subpleural location, axial image 84 measuring 5 mm , subpleural nodular density, axial image 80 also in the right upper lobe measuring 7 to 8 mm There i s no pleural effusion or pneumothorax seen. The tracheobronchial tree is patent. Peripherally calcif ied nodule suspected in the right lower lobe, axial image #116 AORTA: Root of the aorta is borderline enlarged at 4 cm. MEDIASTINUM: There is satisfactory enhancement of the pulmonary artery and its branches, there is no CT evidence for pulmonary embolism. Largest node is present on axial image 50 in the retrocaval pret roxanne is dilated, short axis measurement is 2.3 cm x 2.8 cm in cephalad to caudal dimension by 3.5 cm in AP dimension. There is enlarged retrocaval pretracheal node shows a short axis measurement of 1 3 mm, superior mediastinal node with short axis measurement 13 mm, prevascular nodes are present, the re are calcified hilar nodes, mediastinal nodes. Prominence of pulmonary artery could be indicative o f pulmonary artery hypertension No pericardial effusion is seen. OTHER: No additional significant abnormality is seen. IMPRESSION: CORRELATE FOR PNEUMONIA, THERE IS MEDIASTINAL ADENOPATHY, FOLLOW-UP RECOMMENDED. OLD GRANULOMATOUS DI SEASE. NO EVIDENT PULMONARY EMBOLISM. CORRELATE FOR PULMONARY ARTERY HYPERTENSION, AORTIC ANEURYSM.
[2021-01-14] MEDS: ZINC SULFATE 220 MG CAP PO SCH (20:43)
[2021-01-14] MEDS: LACTATED RINGERS 1,000 ML IV SCH (21:44)
[2021-01-15] MEDS: SODIUM CHLORIDE 0.9% 1,000 ML IV SCH (00:42)
[2021-01-15] MEDS: ENOXAPARIN 40 MG/0.4 ML SYRINGE SQ SCH (09:05)
[2021-01-15] MEDS: ASCORBIC ACID 500 MG TAB PO SCH (09:05)
[2021-01-15] MEDS: METOPROLOL TARTRATE 12.5 MG TAB PO SCH (09:05)
[2021-01-15] MEDS: DEXAMETHASONE SOD PHOSPHATE 10 MG/ML 1 ML VIAL IVP SCH (09:05)
[2021-01-15] MEDS: CHOLECALCIFEROL 25 MCG (1000 IU) TABLET PO SCH (09:05)
[2021-01-15] MEDS: MULTIVITAMINS, THERA 1 EACH TAB PO SCH (09:05)
[2021-01-15 10:17] VITALS: RESP 18
[2021-01-15] MEDS ORDERED: dexAMETHasone 2 MG TAB PO STA (11:30)
--- NOTE | 2021-01-15 11:56 | P.PN ---
Subjective Progress Note Date: 01/15/21 CHIEF COMPLAINT: V. tach HISTORY OF PRESENT ILLNESS: This is a 75-year-old male with a past medical history significant for osteoarthritis. Patient does not follow with a table tender sludge. We have been asked to see the patient in consultation for ventricular tachycardia. The patient is currently admitted to the hospital secondary to COVID-19. Patient is currently on 4 L nasal cannula with oxygen saturations greater than 90%. Blood pressure 101/56. Heart rate is in the 70s. Telemetry reveals sinus mechanism. Upon review of telemetry, the patient is not having runs of ventricular tachycardia. He is having occasional PVCs. Chest x-ray obtained reveals stable left basilar opacities. No peripheral multifocal right mid to lower lung opacities. Findings likely product of known COVID-19 infection. Lower extremity Doppler obtained with no evidence of DVT bilaterally. Laboratory data reviewed revealing WBC 7.7. Hemoglobin 14.7. Pletal count 212. D-dimer 4.92. Sodium 136. Potassium 4.2. BUN 17. Creatinine 0.85. Magnesium 1.9. Troponin negative 1. 01/15/[address] Dos Santos. Patient denies chest pain or pressure. Denies shortness of breath at rest. Reports occasional SOB with exertion. Reports oc casional palpitations. Echocardiogram completed revealed ejection fraction 60- 65%, mild mitral regurgitation, and mild tricuspid regurgitation. PHYSICAL EXAM: Thorough physical exam not completed secondary to limited evaluation/examination due to Covid19 ASSESSMENT: Covid 19 Acute hypoxic respiratory failure Occasional PVCs Osteoarthritis PLAN: Continue telemetry monitoring. metoprolol No further inpatient recommendations from a cardiac standpoint Patient to follow on an outpatient basis with Dr. Dos Santos. Recommend outpa tient stress test when patient has recovered from Covid. We will sign off. Please reconsult if needed. Nurse practitioner note has been reviewed by physician. Signing provider agrees with the documented findings, assessment, and plan of care. Objective - Vital Signs Vital signs: Vital Signs Temp 97.6 F 01/15/21 10:00 Pulse 63 01/15/21 10:00 Resp 18 01/15/21 10:00 BP 94/57 01/15/21 10:00 Pulse Ox 95 01/15/21 10:00 Intake & Output 01/14/21 01/15/21 01/15/21 18:59 06:59 18:59 Intake Total 280 Output Total 400 1400 Balance -400 -1120 Weight 72.575 kg Intake: Oral 280 Output: Urine 400 1400 Other: Voiding Method Toilet Toilet Urinal Urinal # Voids 1 - Labs CBC & Chem 7: 01/08/21 16:16 01/12/21 05:33
[2021-01-15] MEDS: ACETAMINOPHEN TAB 325 MG TAB PO PRN (12:13)
[2021-01-15 12:38] LABS: African American GFR (CKD) >90 (>60 ml/min/1.73 sqM); Non-African American GFR(CKD) 80 (>60 ml/min/1.73 sqM)
[2021-01-15 15:18] VITALS: BP 110/60; PULSE 78; TEMP 98.5
--- NOTE | 2021-01-15 20:30 | P.DS ---
Providers Date of admission: 01/08/21 19:33 Attending physician: Gonzalo Riojas Consults: 01/08/21 19:34 Consult Physician Urgent Consulting Provider: Kimmy Jean-Baptiste Reason/Comments: hypoxia Do you want consulting provider notified?: Yes Primary care physician: Wes Umana [facility] Course: Diagnoses: Bilateral Covid pneumonia Acute hypoxic respiratory failure Increased inflammatory markers Possible episodes of ventricular tachycardia, cleared by bead maker for discharge Elevated d-dimer with negative Doppler ultrasound of the legs for DVT. CTA of the chest also was negative for PE Mediastinal lymphadenopathy, informed patient about this lesion with recommendation for follow-up with speed runner in 1-2 weeks, risk of cancer explained to him and he verbalized understanding and acceptance History of osteoarthritis Hospital course: This is a pleasant 75 years old male with significant many past medical problems except osteoarthritis. Presents with respiratory symptoms found to have bilateral covert pneumonia and hypoxia, his been evaluated by pulmonary service and treated with dexamethasone, vitamin C, vitamin D and zinc. Also he was placed on Pepcid and Lovenox for DVT prophylaxis per protocol. He was doing well and was cleared for discharge by pulmonary service however his d-dimer went up 1.1 to 4.9. Ultrasound of the leg and CTA of the chest were negative for DVT and pulmonary embolism respectively. Patient will be discharged on 2 L oxygen via nasal cannula. Oxygen delivered at bedside per staff Artificial Cherry Maker evaluated him for purulence of V. tach, patient on the day of discharge denies any chest pain or dyspnea. No change in urine or bowel habits. No fever. No other complaints. Patient agrees to go home today. Echocardiogram showed ejection fraction of 60-65% with no significant valve lesion and no pleural effusion/pericardial effusion. Patient also was cleared for discharge by bead maker and also patient was cleared for discharge by pulmonary service Problems and management plan were discussed with the patient and he verbalized understanding and acceptance Patient was found stable and can be discharged home however he needs follow-up as an outpatient. Patient was instructed to follow up with PCP Dr. Dong Harvey within one week and patient agrees Patient was instructed to follow up with Dr. Hall in 1-2 weeks and he agrees to call and make his own appointment Also patient was instructed to follow up with Dr. Dos Santos in 1-2 weeks and he agrees to call and make appointment as well. Physical exam Gen: patient is a AAOx3, no distress CVS: S1-S2, RRR, no murmur Lungs: B/L CTA, no wheezing Abdomen: soft, no distention, no tenderness, positive bowel sounds Extremity: no leg edema or induration Time spent more than 35 minutes Patient Condition at Discharge: Stable Plan - Discharge Summary Discharge Rx Participant: No New Discharge Prescriptions: New dexAMETHasone ORAL [Hexadrol] 6 mg PO DAILY #3 tablet Zinc Sulfate [Orazinc] 220 mg PO HS #30 cap Metoprolol Tartrate [Lopressor] 12.5 mg PO DAILY #60 tab Continue Cholecalciferol [Vitamin D3 (25 Mcg = 1000 Iu)] 25 mcg PO DAILY Acetaminophen Tab [Tylenol] 500 mg PO Q6H PRN PRN Reason: Pain Or Fever > 100.5 Ascorbic Acid [Vitamin C] 1,000 mg PO DAILY #60 tab Discontinued Zinc Gluconate [Zinc] 50 mg PO HS Vitamin B Complex 1 cap PO DAILY Multivitamins, Thera [Multivitamin (formulary)] 1 tab PO DAILY Cetirizine HCl 10 mg PO DAILY PRN PRN Reason: Allergy Symptoms Discharge Medication List Cholecalciferol [Vitamin D3 (25 Mcg = 1000 Iu)] 25 mcg PO DAILY 01/04/21 [History] Acetaminophen Tab [Tylenol] 500 mg PO Q6H PRN 01/08/21 [History] Ascorbic Acid [Vitamin C] 1,000 mg PO DAILY #60 tab 01/15/21 [Rx] Metoprolol Tartrate [Lopressor] 12.5 mg PO DAILY #60 tab 01/15/21 [Rx] Zinc Sulfate [Orazinc] 220 mg PO HS #30 cap 01/15/21 [Rx] dexAMETHasone ORAL [Hexadrol] 6 mg PO DAILY #3 tablet 01/15/21 [Rx] Follow up Appointment(s)/Referral(s): Kimmy Jean-Baptiste MD [STAFF PHYSICIAN] - 2 Weeks Mert Dos Santos DO [STAFF PHYSICIAN] - 2 Weeks (we recommend : outpatient stress test when patient you are recovered from Covid) [facility] [NON-STAFF] - 1 Week Wes Umana MD [Primary Care Provider] - 1-2 days Patient Instructions/Handouts: Coronavirus Disease 2019 (COVID-19) Discharge Disposition: HOME SELF-CARE
== END 2021-01-15 17:36 | disposition home or self-care (01) | DRG 177 ==
LOC: EC 14:38 → 4SSUR 19:33
PROVIDERS: ADMIT Hospitalist; ATTEND Hospitalist
DX: U07.1 COVID-19 (principal); J12.82 Pneumonia due to coronavirus disease 2019; J96.01 Acute respiratory failure with hypoxia; E87.1 Hypo-osmolality and hyponatremia; I47.2 Ventricular tachycardia; D72.810 Lymphocytopenia; R79.89 Other specified abnormal findings of blood chemistry; M15.9 Polyosteoarthritis, unspecified; R59.0 Localized enlarged lymph nodes; G47.00 Insomnia, unspecified; G89.29 Other chronic pain; E86.0 Dehydration; I49.3 Ventricular premature depolarization; Z82.49 Family history of ischemic heart disease and other diseases of the circulatory system
CPT/HCPCS: 36415; 71046; 71275; 78580; 80048; 80053; 81003; 82565; 83605; 83735; 84484; 85025; 85379; 85610; 85730; 86140; 93306; 93970; 94760; 96360; 96361; 99285

== ENCOUNTER → 2022-01-22 | Outpatient (CLI) | payer MEDICARE ==
--- NOTE | 2022-01-22 13:06 | CT ---
EXAMINATION TYPE: CT chest w con DATE OF EXAM: 01/22/2022 COMPARISON: 01/14/2021 HISTORY: Localized enlarged lymph nodes. CT DLP: 439 mGycm Automated exposure control for dose reduction was used. CONTRAST: CT scan of the chest is performed with IV Contrast, patient injected with 70ml mL of Isovue 300. FINDINGS: LUNGS: Mild upper lobe emphysematous change noted. Scattered calcified pulmonary nodules seen bilater ally compatible with remote granulomatous disease. Mild scattered basilar subpleural fibrosis. No con cerning pulmonary nodule or mass. No consolidation or volume loss. MEDIASTINUM: Calcified mediastinal and hilar lymph nodes are noted. Largest lymph node right paratrac heal region measures 1.6 cm short axis. No pericardial effusion is seen. Thoracic aorta is of normal caliber. The heart is not enlarged. UPPER ABDOMEN: No significant abnormality appreciated. OTHER: No additional significant abnormality is seen. IMPRESSION: 1. Remote granulomatous changes as noted above.
== END | disposition home or self-care (01) ==
LOC: RADCTMAIN 11:33
PROVIDERS: ATTEND Internal Medicine Critical Care Medicine
DX: J43.9 Emphysema, unspecified (principal); R91.8 Other nonspecific abnormal finding of lung field; R59.0 Localized enlarged lymph nodes
CPT/HCPCS: 82565; 84520; 71260; 36415; Q9967

== ENCOUNTER → 2023-05-11 | Outpatient (CLI) | payer MEDICARE ==
--- NOTE | 2023-05-11 16:44 | CT ---
EXAMINATION TYPE: CT right knee - ARMIDA Protocol CT DLP: 496 mGycm, Automated exposure control for dose reduction was used. DATE OF EXAM: 05/11/2023 4:37 PM COMPARISON: None CLINICAL INDICATION:Male, 77 years old with history of M25.561 KNEE PAIN; PHH, rt knee armida protocol TECHNIQUE: Axial images were obtained of the CT right knee - ARMIDA Protocol, Additional coronal and sa gittal reformatted images and soft tissue and bone window were obtained for review. Contrast used: mL of , (None if empty) Oral contrast used: (None if empty) FINDINGS: The visualized portion of the hips demonstrate mild osteoarthrosis changes with osteophyte formation of the acetabulum. No acute intrapelvic process. The bony structures of the pelvis are inta ct. The visualized knee demonstrates osteophyte formation of the tibial plateau, the patella and femoral condyles. There is joint space narrowing and subchondral sclerosis. No evidence of fracture. Joint s pace narrowing worse in the medial knee with adjacent subchondral sclerosis. Severe joint space narro wing also present. Visualized ankle demonstrates multifocal osteoarthrosis changes with osteophyte formation and mild robert int space narrowing. No evidence of fractures. The prostate gland is enlarged for size measuring 5.7 cm in transverse dimension. Left fat-containing inguinal hernia. IMPRESSION: Severe osteoarthrosis changes of the knee.
== END | disposition home or self-care (01) ==
LOC: RADCTMAIN 16:00
PROVIDERS: ATTEND Orthopaedic Surgery
DX: M17.0 Bilateral primary osteoarthritis of knee (principal); M21.162 Varus deformity, not elsewhere classified, left knee; M21.161 Varus deformity, not elsewhere classified, right knee; M25.561 Pain in right knee

== ENCOUNTER → 2023-05-12 | Outpatient (CLI) | payer MEDICARE ==
[2023-05-12 12:56] LABS: INR 1.1 (<1.2); Partial Thromboplastin Time 24.3 sec (22.0-30.0); Prothrombin Time 11.5 sec (10.0-12.5)
[2023-05-12 16:55] LABS: HCT 46.5 % (39.6-50.0); HGB 15.4 g/dL (13.0-17.0); MCH 30.6 pg (27.0-32.0); MCHC 33.1 g/dL (32.0-37.0); MCV 92.3 FL (80.0-97.0); Mean Platelet Volume 10.1 FL (9.5-12.2); NRBC Per 100 WBC 0 X 10*3/uL (0.00-0.01); Platelet Count 207 X 10*3/uL (140-440); RBC 5.04 X 10*6/uL (4.40-5.60); WBC 7.57 X 10*3/uL (4.50-10.00)
[2023-05-12 17:22] LABS: ALT 17 U/L (10-49); AST 21 U/L (14-35); Albumin 4.4 g/dL (3.8-4.9); Albumin/Globulin Ratio 1.69 Ratio (1.60-3.17); Alkaline Phosphatase 72 U/L (41-126); Blood Urea Nitrogen 18.2 mg/dL (9.0-27.0); Calcium 10.2 mg/dL (8.7-10.3); Carbon Dioxide 27.3 mmol/L (21.6-31.8); Chloride 103 mmol/L (96-109); Globulin 2.6 g/dL (1.6-3.3); Glucose 97 mg/dL (70-110); Potassium 5.2 mmol/L (3.5-5.5); Sodium 141 mmol/L (135-145); Total Bilirubin 1.2 mg/dL (0.3-1.2)
== END | disposition home or self-care (01) ==
LOC: LABPAT 11:48
PROVIDERS: ATTEND Orthopaedic Surgery
DX: Z01.812 Encounter for preprocedural laboratory examination (principal); Z22.322 Carrier or suspected carrier of Methicillin resistant Staphylococcus aureus
CPT/HCPCS: 80053; 83036; 85027; 85610; 85730; 87070

== ENCOUNTER 2023-05-26 13:41 | Day surgery (SDC) | payer MEDICARE ==
[2023-05-18 16:04] VITALS: BMI 24.3
[~2023-05-26 13:41] MED LIST: HYDROmorphone 0.5 MG/0.5 ML SYRINGE IVP PRN; LIDOCAINE 1% (10MG/ML) FOR IV START INTRADERMA PRN; MIDAZOLAM 2 MG/2 ML VIAL IV PRN; TRANEXAMIC 1,000 MG/100ML-NACL 1,000 MG in SALINE 1 100ML.BAG IV PRN; TRANEXAMIC 1,000 MG/100ML-NACL 1,000 MG in SALINE 1 100ML.BAG IVPB PRN
[2023-05-26] MEDS: LACTATED RINGERS 1,000 ML IV ONE ×3 (14:07→17:36)
[2023-05-26] MEDS: ACETAMINOPHEN TAB 500 MG TAB PO PRN (14:15)
[2023-05-26] MEDS: DEXAMETHASONE SOD PHOSPHATE 10 MG/ML 1 ML VIAL IV PRN (14:15)
[2023-05-26] MEDS: KETOROLAC 15 MG/ML 1 ML VIAL IVP PRN (14:15)
[2023-05-26] MEDS: oxyCODONE ER 10 MG TAB.ER.12H PO PRN (14:15)
[2023-05-26] MEDS: FAMOTIDINE 20 MG/2 ML VIAL IVP PRN (14:15)
[2023-05-26] MEDS: DOCUSATE 100 MG CAP PO PRN (14:15)
[2023-05-26] MEDS: ONDANSETRON 4 MG/2 ML VIAL IVP PRN (14:15)
[2023-05-26 14:41] LABS: Glucose,Whole Blood 88 mg/dL (70-110)
[2023-05-26] MEDS: MIDAZOLAM 2 MG/2 ML VIAL IVP ONE (14:52)
[2023-05-26] MEDS: fentaNYL (PF) 50 MCG/1 ML VIAL IVP ONE (14:52)
[2023-05-26] MEDS ORDERED: bisacodyL 10 MG SUPP RECTAL PRN (14:57)
[2023-05-26] MEDS ORDERED: MAGNESIUM HYDROXIDE 2,400 MG/30 ML CUP PO PRN (14:57)
[2023-05-26] MEDS ORDERED: NALOXONE 0.4 MG/ML 1 ML VIAL IV PRN (14:57)
[2023-05-26] MEDS ORDERED: HYDROmorphone 0.5 MG/0.5 ML SYRINGE IVP PRN ×3 (14:57)
[2023-05-26] MEDS ORDERED: NA PHOS,M-B/NA PHOS,DI-BA 133 ML ENEMA RECTAL PRN (14:57)
[2023-05-26] MEDS ORDERED: HYDROcodone/APAP 7.5-325MG 1 EACH TAB PO PRN (15:00)
[2023-05-26] MEDS ORDERED: MIDAZOLAM 2 MG/2 ML VIAL ONE (15:26)
[2023-05-26] MEDS ORDERED: NEOSTIGMINE 1 MG/ML 10 ML VIAL ONE (15:26)
[2023-05-26] MEDS ORDERED: ROPIVACAINE 5 MG/ML 30 ML VIAL ONE (15:26)
[2023-05-26] MEDS ORDERED: LIDOCAINE 1% INJ 10MG/ML (20 ML MDV) ONE (15:26)
[2023-05-26] MEDS ORDERED: SUCCINYLCHOLINE CHLORIDE 200 MG/10 ML VIAL IV ONE (15:26)
[2023-05-26] MEDS ORDERED: ePHEDrine 50 MG/ML 1 ML VIAL ONE (15:26)
[2023-05-26] MEDS ORDERED: fentaNYL (PF) 50 MCG/ML 2 ML AMP ONE (15:26)
[2023-05-26] MEDS ORDERED: GLYCOPYRROLATE 0.2 MG/ML 2 ML VIAL ONE (15:26)
[2023-05-26] MEDS ORDERED: PROPOFOL 10 MG/ML 20 ML VIAL IV ONE (15:26)
[2023-05-26] MEDS ORDERED: TRANEXAMIC 1,000 MG/100ML-NACL PREMIX BAG ONE (15:26)
[2023-05-26] MEDS ORDERED: ROCURONIUM 10 MG/ML (5 ML VIAL) IV ONE (15:26)
[2023-05-26] MEDS ORDERED: SODIUM CHLORIDE 0.9% (PF) 10 ML VIAL ONE (15:26)
[2023-05-26] MEDS ORDERED: PHENYLEPHRINE-0.9% NACL SYG 1,000 MCG/10 ML SYRINGE ONE (15:26)
[2023-05-26] MEDS: ROPIVACAINE/EPI/CLONIDINE/KET 50 ML SYRINGE MISCELLANE PRN (15:31)
--- NOTE | 2023-05-26 17:45 | P.OP ---
Date of Procedure: 05/26/23 Preoperative Diagnosis: Severe right knee osteoarthritis Postoperative Diagnosis: same Procedure(s) Performed: 1. Right total knee arthroplasty 2. Computer assisted musculoskeletal navigation using CT/MRI images Implants: 1. [employer] CR Femur Size #4 2. [employer] [place] Tibial Base Size #5 3. [employer] CS poly Size #10 4. [employer] all poly patella, Size #32 Anesthesia: LUISA, regional Surgeon: Patricio Siddiqui Java Developer With Security Clearance #1: Brianna Courtney Estimated Blood Loss (ml): 100 IV fluids (ml): 900 Pathology: none sent Condition: stable Disposition: PACU Indications for Procedure: I met with the patient preoperatively in the office setting and discussed treatment of their symptomatic knee arthritis. They failed a long course of nonsurgical treatment and elected to proceed with an elective total knee replacement. I discussed the potential risks and complications at length and gave them ample time to ask questions. Risks discussed included: risks from anesthesia, superficial site surgical infection, acute and/or chronic periprosthetic joint infection, delayed wound healing, drainage, wound necrosis, instability, stiffness, stiffness requiring manipulation and/or revision surgery, damage to local blood vessels or nerves, aseptic loosening of the implants, extensor mechanism issues including disruption, patellar maltracking, avascular necrosis etc., continued or worsened knee pain, generalized dissatisfaction with surgical outcome, need for revision surgery, an inability to regain preinjury level of function, DVT, PE, other medical complications, and possibly loss of life or limb. The patient voiced their understanding that while these are the most common complications other less common complications are possible. They provided both their verbal and written consent to go forward with surgery. Operative Findings: severe right knee osteoarthritis Description of Procedure: The patient was identified in preoperative holding and the correct operative extremity was verified and marked with a marker. I reviewed the consent form with the patient at length. All of their questions were answered. The patient was given a block by anesthesia. They were then brought back to the operating room. They were transferred onto the operating room table where a general anesthetic, preoperative antibiotics, and tranexamic acid were administered by anesthesia. A tourniquet was applied to the proximal aspect of the operative extremity. The contralateral extremity was padded under the heel and secured to the operating room table with a nonsterile blue towel and tape. The ipsilateral arm was carefully draped across the patient's chest and secured with a pillow and foam. A post was applied over the lateral aspect of the ipsilateral thigh and a bolster was placed under the ipsilateral foot. I verified that the operative extremity was stable and the knee was flexed to 90. The operative extremity was then placed in a leg lovelace, nonsterile drapes were applied, and the extremity was prepped and draped sterilely in the standard sterile fashion. Prior to starting surgery timeout was performed identifying the correct patient, operative extremity, and procedure. The leg was then elevated, exsanguinated with an Esmarch bandage, and the tourniquet was inflated. An anterior midline incision was made sharply with a scalpel. Once I had dissected deep to the superficial fascial layer medial and lateral flaps were elevated. A medial parapatellar arthrotomy was created. Upon opening the knee joint there were diffuse arthritic changes in all 3 compartments. The anterior horn of the medial meniscus were sharply released and a medial release was performed around the posterior medial corner of the knee to facilitate retractor placement. The fat pad was excised with electrocautery. The patella was found to be severely arthritic and a provisional cut was made with a sagittal saw to facilitate mobilization of the extensor mechanism during the procedure. Remnants of the ACL and PCL were then excised from the notch. 4 mm pins were then placed within the incision in the medial distal femur and proximal tibia. Arrays were applied to the pins and I verified they were completely tightened. The knee was then registered with the [employer] robot and manipulations in implant position were made to balance the knee and opitmize implant position. Using the Shilo robotic saw all cuts were made in accordance with our plan. After all bony fragments had been removed the cuts were verified with the planar probe. The tibia was then subluxed forward and sized. The knee was brought into flexion and a lamina analyzer sales was placed to allow removal of the meniscal remnants both medially and laterally as well as posterior osteophytes. Local anesthetic was then infiltrated around the joint capsule. Trial implants were then placed within the knee. Range of motion and collateral ligament tension was then evaluated. Adjustments in implant size and position were then made accordingly. Once the knee was felt to be appropriately balanced the Shilo pins were removed. The patella was then recut, sized, and punched. A trial patellar button was then placed. With the trial components in place, the patella tracked midline. The femur was then drilled and the trial component removed. The trial tibial component was then appropriately rotated, pinned, and prepared for the keel. All trial components were then removed from the knee. The knee was thoroughly irrigated with pulsatile lavage. Cement was prepared via vacuum mixing in a bowl on the back table. I then hand pressurized cement into the femur and tibia and placed the implants beginning with the tibial base tray and poly liner, femoral component, and finally the patellar button. All extruded cement was removed including from the pin sites. Once the cement had hardened the knee was evaluated one final time with the final polyethylene liner in place. The knee had full extension and flexion and felt stable to varus and valgus stress throughout the arc of motion. The tourniquet was released and with the tourni quet down the patella tracked midline. All bleeders were controlled with electrocautery. The knee was then soaked for 3 minutes with a dilute Betadine soak. The knee was thoroughly irrigated using 3 L of sterile saline and pulsatile lavage. The extensor mechanism was then reapproximated using pop off Vicryl sutures followed by a running barbed suture. The knee was then closed in layers with a 0 strata fix for the deep fascial layer, 2-0 strata fix for the superficial subcutaneous layer and Monocryl and Steri-Strips for the skin. A sterile dressing was applied. I verified that all instrument, sponge, and sharp counts were correct. The patient was then transferred off the operating room table, extubated, and brought to recovery having tolerated the procedure well. Brianna Courtney PA-C was respired skilled volleyball assistant coach due to the complexity of surgery for patient positioning, draping, exposure, retraction, closure of wound, and application of dressing. PLAN: The patient can weight-bear as tolerated on the operative extremity. DVT prophylaxis with aspirin 81 mg twice a day based on preoperative risk stratification. Follow-up in the office in 2 weeks for wound check and x-rays of the knee including an AP and lateral.
[2023-05-26] MEDS: ONDANSETRON 4 MG/2 ML VIAL IVP ONE ×2 (18:08→18:50)
[2023-05-26] MEDS: DEXAMETHASONE SOD PHOSPHATE 4 MG/ML 1 ML VIAL IV ONE (18:50)
[2023-05-26] MEDS: LACTATED RINGERS 1,000 ML IV SCH (18:51)
--- NOTE | 2023-05-26 19:48 | XR ---
EXAMINATION TYPE: XR knee limited RT DATE OF EXAM: 05/26/2023 7:15 PM CLINICAL INDICATION:Male, 77 years old with history of Evaluation for Postop abnormality and alignmen t; [facility] COMPARISON: None. TECHNIQUE: XR knee limited RT; examined in Frontal, lateral and oblique projections. FINDINGS: Status post total knee arthroplasty changes with hardware in appropriate alignment and in tact. No evidence of fracture. Subcutaneous lucencies and lucencies within the joint consistent with surgical changes. IMPRESSION: Status post total knee arthroplasty changes with hardware intact and appropriate alignment. No fractu res identified.
--- NOTE | 2023-05-26 20:22 | P.ANPRN ---
Procedure Note - Anesthesia - Nerve Block Performed Right Adductor Canal Single Time Out Performed: Yes (1451) Date of Procedure: 05/26/23 Procedure Start Time: 14:52 Procedure Stop Time: 14:55 Location of Patient: PreOp Indication: Acute Post-Operative Pain, Requested by Surgeon Specifically requested for management of pain by DrSheeba: Patricio Siddiqui Sedation Type: Sedate with meaningful contact maintained Preparation: Sterile Prep Position: Supine Catheter: None Needle Types: Pajunk Needle Gauge: 21 Ultrasound used to visualize needle placement: Yes Ultrasound used to observe medication spread: Yes Injectate: 0.5% Ropivacaine (see comment for volume) (15CC +10CC NACL PF) Blood Aspirated: No Pain Paresthesia on Injection Noted: No Resistance on Injection: Normal Image Stored and Saved: Yes Events: Uneventful and Well Tolerated
--- NOTE | 2023-05-26 20:23 | P.ANPRN ---
Procedure Note - Anesthesia - Nerve Block Performed Right iPack Single Time Out Performed: Yes (4403) Date of Procedure: 05/26/23 Procedure Start Time: 14:56 Procedure Stop Time: 14:57 Location of Patient: PreOp Indication: Acute Post-Operative Pain, Requested by Surgeon Specifically requested for management of pain by DrSheeba: Patricio Siddiqui Sedation Type: Sedate with meaningful contact maintained Preparation: Sterile Prep Position: Supine Catheter: None Needle Types: Pajunk Needle Gauge: 21 Ultrasound used to visualize needle placement: Yes Ultrasound used to observe medication spread: Yes Injectate: 0.5% Ropivacaine (see comment for volume) (15CC +10CC NACL PF) Blood Aspirated: No Pain Paresthesia on Injection Noted: No Resistance on Injection: Normal Image Stored and Saved: Yes Events: Uneventful and Well Tolerated
--- NOTE | 2023-05-26 21:08 | P.CONS ---
History of Present Illness - Reason for Consult Consult date: 05/26/23 Medical management Requesting physician: Patricio Siddiqui - Chief Complaint Right knee surgery - History of Present Illness Very pleasant 77-year-old patient follows Dr. Umana. Underwent right total knee arthroplasty. Postprocedure sitting up in bed eating late supper. No pain currently. No nausea vomiting. No cardiac history. Hard of hearing. [place] downs Has early BPH symptoms. With a slow stream. Review of systems: GEN.: None EYES: None HEENT: None NECK: None RESPIRATORY: None CARDIOVASCULAR: None GASTROINTESTINAL: None GENITOURINARY: Slow stream MUSCULOSKELETAL: Arthritis in joints] LYMPHATICS: None HEMATOLOGICAL: None PSYCHIATRY: None NEUROLOGICAL: None Social history: Alcohol rarely. No smoking. . 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 Physical examination: VITAL SIGNS: 97.8, 70, 14, 1 one 5 x 57, 97% room air GENERAL: BMI 24.7, reclining bed eating late supper. EYES: Pupils equal. Conjunctiva julia l. HEENT: External appearance of nose and ears normal, oral cavity grossly normal. Some decreased hearing NECK: JVD not raised; masses not palpable. HEART: First and second heart sounds are normal; no edema. LUNGS: Respiratory rate normal; clear to auscultation. ABDOMEN: Soft, nontender, liver spleen not palpable, no masses palpable. PSYCH: Alert and oriented x3; mood and affect julia l. MUSCULOSKELETAL:No Clubbing/cyanosis;muscles-grossly intact. OA. Dressing over the right knee NEUROLOGICAL: Cranial nerves grossly intact; no facial asymmetry, power and sensation grossly intact. LYMPHATICS: No lymph nodes palpable in the axilla and neck INVESTIGATIONS, reviewed in the clinical context: May 20, 2023: White count 7.5 hemoglobin 15.4 platelets 207 potassium 5.2 BUN 18.2 creatinine 1.3 Assessment plan: -Right total knee arthroplasty Aspirin 81 twice daily for DVT prophylaxis. IV cefazolin for infection prophylaxis. Pain controlled. -Primary osteoarthritis multiple joints Diclofenac sodium as needed -Hard of hearing. 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 Care was discussed with the patient. Questions answered. Thank you Dr. Siddiqui Past Medical History Past Medical History: Hearing Disorder / Deafness, Hyperlipidemia Additional Past Medical History / Comment(s): 25% hearing loss in both ears. History of Any Multi-Drug Resistant Organisms: None Reported Past Surgical History: Hernia Repair, Orthopedic Surgery, Tonsillectomy Additional Past Surgical History / Comment(s): Bilateral thumb joint surgery, abdominal wall tumor removed, spermatic vein surgery(for fertility issues), cortisone in left knee. Past Anesthesia/Blood Transfusion Reactions: No Reported Reaction Additional Past Anesthesia/Blood Transfusion Reaction / Comm: Had severe nausea with chemical stress test. Past Psychological History: No Psychological Hx Reported Smoking Status: Never smoker Past Alcohol Use History: Rare Past Drug Use History: None Reported - Past Family History Father Family Medical History: Congestive Heart Failure (CHF) Medications and Allergies Home Medications Medication Instructions Recorded Confirmed Type Ashwagandha (Unknown Dose) 1 tab PO DAILY 05/18/23 05/26/23 History Cetirizine HCl 10 mg PO DAILY 05/18/23 05/26/23 History Collagen (Unknown Dose) 1 dose PO DAILY 05/18/23 05/26/23 History Multivitamin [Multivitamins Adult 1 each PO DAILY 05/18/23 05/26/23 History Gummies] Turmeric (Unknown Dose) 1 tab PO DAILY 05/18/23 05/26/23 History Vitamin B Complex 1 each PO DAILY 05/18/23 05/26/23 History Vitamin C (Unknown Dose) 1 tab PO DAILY 05/18/23 05/26/23 History Vitamin D3 (Unknown Dose) 1 tab PO DAILY 05/18/23 05/26/23 History Aspirin [Adult Low Dose Aspirin EC] 81 mg PO BID 30 Days #60 tab 05/26/23 Rx Diclofenac Sodium [Voltaren] 75 mg PO BID #60 tab 05/26/23 Rx HYDROcodone/APAP 7.5-325MG [[place] 1 - 2 tab PO Q6H PRN #32 tab 05/26/23 Rx 7.5-325] Omeprazole [PriLOSEC] 20 mg PO DAILY #30 cap 05/26/23 Rx Sennosides [Senokot] 2 tab PO DAILY PRN #60 tablet 05/26/23 Rx Allergies Allergy/AdvReac Type Severity Reaction Status Date / Time No Known Allergies Allergy Verified 05/26/23 14:12 Physical Exam Vitals: Vital Signs Temp Pulse Resp BP Pulse Ox 05/26/23 18:08 70 14 115/57 97 05/26/23 17:50 72 13 115/54 99 05/26/23 17:36 97.8 F 79 12 140/64 99 05/26/23 14:58 71 16 131/71 98 05/26/23 14:07 98 F 74 16 139/73 98 Intake and Output 05/26/23 05/26/23 05/26/23 06:59 14:59 22:59 Intake Total 100 1300 Output Total 100 Balance 100 1200 Intake: IV 100 1300 Output: Estimated Blood Loss 100 Other: Weight 71.5 kg 71.5 kg
[2023-05-26] MEDS: SENNOSIDES-DOCUSATE SODIUM 1 EACH TAB PO SCH (22:00)
[2023-05-26] MEDS: SODIUM CHLORIDE 0.9% 1,000 ML IV SCH (22:00)
[2023-05-26] MEDS: ASPIRIN 81 MG PO SCH (22:00)
[2023-05-27] MEDS: ONDANSETRON 4 MG/2 ML VIAL IVP PRN (01:22)
[2023-05-27] MEDS: MULTIVITAMINS, THERA 1 EACH TAB PO SCH (07:51)
--- NOTE | 2023-05-27 07:51 | P.DS ---
Providers Attending physician: Patricio Siddiqui Consults: 05/26/23 14:57 Consult Physician Routine Consulting Provider: Gonzalo Riojas Consult Reason/Comments: medical management Do you want consulting provider notified?: Yes Primary care physician: [place] Course: The patient is a very pleasant 77-year-old male who was admitted under my care yesterday. He underwent an uncomplicated total knee replacement and following surgery was transferred to the orthopedic floor. Receive 2 doses of postoperative antibiotics. He was transitioned from IV to oral pain medication. He was seen by internal medicine. I saw the patient on postoperative day number 1 in the morning and he was doing well. His dressing was intact. Motor and sensory function were intact. He was alert and able to answer questions. Physical therapy was consulted for gait assessment and mobilization. The patient did well and was ultimately cleared for discharge home. Plan - Discharge Summary Discharge Rx Participant: Yes New Discharge Prescriptions: New Aspirin [Adult Low Dose Aspirin EC] 81 mg PO BID 30 Days #60 tab Omeprazole [PriLOSEC] 20 mg PO DAILY #30 cap Sennosides [Senokot] 2 tab PO DAILY PRN #60 tablet PRN Reason: Constipation HYDROcodone/APAP 7.5-325MG [[place] 7.5-325] 1 - 2 tab PO Q6H PRN #32 tab PRN Reason: Pain Diclofenac Sodium [Voltaren] 75 mg PO BID #60 tab No Action Cetirizine HCl 10 mg PO DAILY Vitamin D3 (Unknown Dose) 1 tab PO DAILY Multivitamin [Multivitamins Adult Gummies] 1 each PO DAILY Ashwagandha (Unknown Dose) 1 tab PO DAILY Vitamin C (Unknown Dose) 1 tab PO DAILY Turmeric (Unknown Dose) 1 tab PO DAILY Collagen (Unknown Dose) 1 dose PO DAILY Vitamin B Complex 1 each PO DAILY Discharge Medication List Ashwagandha (Unknown Dose) 1 tab PO DAILY 05/18/23 [History] Cetirizine HCl 10 mg PO DAILY 05/18/23 [History] Collagen (Unknown Dose) 1 dose PO DAILY 05/18/23 [History] Multivitamin [Multivitamins Adult Gummies] 1 each PO DAILY 05/18/23 [History] Turmeric (Unknown Dose) 1 tab PO DAILY 05/18/23 [History] Vitamin B Complex 1 each PO DAILY 05/18/23 [History] Vitamin C (Unknown Dose) 1 tab PO DAILY 05/18/23 [History] Vitamin D3 (Unknown Dose) 1 tab PO DAILY 05/18/23 [History] Aspirin [Adult Low Dose Aspirin EC] 81 mg PO BID 30 Days #60 tab 05/26/23 [Rx] Diclofenac Sodium [Voltaren] 75 mg PO BID #60 tab 05/26/23 [Rx] HYDROcodone/APAP 7.5-325MG [[place] 7.5-325] 1 - 2 tab PO Q6H PRN #32 tab 05/26/23 [Rx] Omeprazole [PriLOSEC] 20 mg PO DAILY #30 cap 05/26/23 [Rx] Sennosides [Senokot] 2 tab PO DAILY PRN #60 tablet 05/26/23 [Rx] Follow up Appointment(s)/Referral(s): Patricio Siddiqui MD [Medical Doctor] - 2 Weeks Activity/Diet/Wound Care/Special Instructions: 1. Weight-bear as tolerated on your operative extremity unless instructed otherwise. Use a walker or other assistive device to ambulate. 2. Leave surgical dressing in place. If your dressing becomes saturated with blood, there is drainage, or the dressing becomes loose please contact the office. 3. It is okay to shower with your surgical dressing, but do not submerge in water (no hot tubs, bath's, swimming etc.) 4. Make sure to take her blood clot prevention medication as prescribed (aspirin, Eliquis, Xarelto, and Plavix are commonly prescribed medications for blood clot prevention) 5. While taking [place] or Percocet for pain make sure you're taking a stool softener (Colace) and drink lots of water. 6. Keep all follow-up appointments as scheduled. You will usually be seen in 1-2 weeks following surgery. 7. Please contact the office with any questions or concerns [phone] Discharge Disposition: HOME WITH HOME HEALTH SERVICES
[2023-05-27 08:16] VITALS: BP 92/51; PULSE 71; RESP 16; TEMP 97.9
[2023-05-27] MEDS ORDERED: NON FORMULARY DRUG (Vitamin B Complex [Vitamin B Complex] 1 EACH Capsule) PO SCH (09:00)
[2023-05-27 10:04] LABS: Basophils # (A) 0.02 X 10*3/uL (0.00-0.10); Basophils % (A) 0.1 %; Eosinophils # (A) 0.01 X 10*3/uL (0.04-0.35); Eosinophils % (A) 0.1 %; HCT 36.1 % (39.6-50.0); Lymphocytes # (A) 0.66 X 10*3/uL (0.90-5.00); Lymphocytes % (A) 4.3 %; MCHC 33.2 g/dL (32.0-37.0); MCV 93.3 FL (80.0-97.0); Mean Platelet Volume 10.1 FL (9.5-12.2); Monocytes # (A) 0.98 X 10*3/uL (0.20-1.00); Monocytes % (A) 6.4 %; NRBC Per 100 WBC 0 X 10*3/uL (0.00-0.01); Neutrophils # (A) 13.54 X 10*3/uL (1.80-7.70); Neutrophils % (A) 88.6 %; Platelet Count 157 X 10*3/uL (140-440); RBC 3.87 X 10*6/uL (4.40-5.60); RDW 12.9 % (11.5-14.5); WBC 15.28 X 10*3/uL (4.50-10.00)
[2023-05-27] MEDS: HYDROcodone/APAP 7.5-325MG 1 EACH TAB PO PRN (11:22)
--- NOTE | 2023-05-27 17:25 | P.PN ---
Progress Note - Text Progress Note Date: 05/27/23 - Chief Complaint Right knee surgery - History of Present Illness Very pleasant 77-year-old patient follows Dr. Umana. Underwent right total knee arthroplasty. Postprocedure sitting up in bed eating late supper. No pain currently. No nausea vomiting. No cardiac history. Hard of hearing. Arthritis. Has early BPH symptoms. With a slow stream. May 26: Some pain at operative site. Did ambulate with therapy. Tolerated diet. Ferrous sulfate added for blood loss anemia. No clinical evidence of infection with no respiratory urinary symptoms. Discussed with patient. Social history: Alcohol rarely. No smoking. . 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 Physical examination: VITAL SIGNS: 97.9, 71, 16, 92 x 51, 90% room air GENERAL: BMI 24.7, comfortable EYES: Pupils equal. Conjunctiva julia l. HEENT: External appearance of nose and ears normal, oral cavity grossly normal. Some decreased hearing NECK: JVD not raised; masses not palpable. HEART: First and second heart sounds are normal; no edema. LUNGS: Respiratory rate normal; clear to auscultation. ABDOMEN: Soft, nontender, liver spleen not palpable, no masses palpable. PSYCH: Alert and oriented x3; mood and affect julia l. MUSCULOSKELETAL:No Clubbing/cyanosis;muscles-grossly intact. OA. Dressing over the right knee INVESTIGATIONS, reviewed in the clinical context: May 26: White count 15.2 hemoglobin 12 platelets 157 May 20, 2023: White count 7.5 hemoglobin 15.4 platelets 207 potassium 5.2 BUN 18.2 creatinine 1.3 Assessment plan: -Right total knee arthroplasty Aspirin 81 twice daily for DVT prophylaxis. IV cefazolin for infection prophylaxis. Pain controlled. -Acute postprocedure blood loss anemia expected from surgery Ferrous sulfate 325 mg twice daily -Leukocytosis, reactive likely from surgery. No clinical evidence of infection -Primary osteoarthritis multiple joints Diclofenac sodium as needed -Hard of hearing. 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 Care was discussed with the patient. Follow-up with PCP upon discharge Thank you Dr. Siddiqui Past Medical History Past Medical History: Hearing Disorder / Deafness, Hyperlipidemia Additional Past Medical History / Comment(s): 25% hearing loss in both ears. History of Any Multi-Drug Resistant Organisms: None Reported Past Surgical History: Hernia Repair, Orthopedic Surgery, Tonsillectomy Additional Past Surgical History / Comment(s): Bilateral thumb joint surgery, abdominal wall tumor removed, spermatic vein surgery(for fertility issues), cortisone in left knee. Past Anesthesia/Blood Transfusion Reactions: No Reported Reaction Additional Past Anesthesia/Blood Transfusion Reaction / Comm: Had severe nausea with chemical stress test. Past Psychological History: No Psychological Hx Reported Smoking Status: Never smoker Past Alcohol Use History: Rare Past Drug Use History: None Reported
== END 2023-05-27 13:38 | disposition home health service (06) ==
LOC: OR 13:41 → 4SSUR 17:36 → OR 05-27 13:38
PROVIDERS: ATTEND Orthopaedic Surgery
DX: M17.11 Unilateral primary osteoarthritis, right knee (principal); M25.761 Osteophyte, right knee; M21.161 Varus deformity, not elsewhere classified, right knee; F10.90 Alcohol use, unspecified, uncomplicated; Z98.890 Other specified postprocedural states; Z79.82 Long term (current) use of aspirin
CPT/HCPCS: 97161; 64447; 64999; 85025; 73560; 27447; C1776; C1713; J2250; J1100; J0690 ×2; J2405 ×2; J3490; J1885; J3010

== ENCOUNTER → 2023-11-01 | Outpatient (CLI) | payer MEDICARE ==
--- NOTE | 2023-11-01 15:12 | CT ---
CT left knee medical protocol. HISTORY: Left knee pain COMPARISON: None TECHNIQUE: Multiple axial images of the left knee were obtained along with additional imaging accordi ng to the medical protocol. FINDINGS: Transabdominal and symmetric bilaterally without fracture, dislocation, focal intraosseous abnormalit y. No significant degeneration. Incidental note is made of marked prostatic hypertrophy with mass eff ect median lobe upon the bladder base. There is moderate to marked narrowing of the medial compartment of the knee with mild subchondral scl erosis and hypertrophic spurring. There is minimal narrowing of the lateral compartment. The patellof emoral compartment is well preserved. There is mild hypertrophic spurring of the patellar margins. There is no fracture or focal intraosseous abnormality. IMPRESSION: Tricompartment osteoarthritis, moderate to severe in the medial compartment and mild in the patellofe moral and lateral compartments.
== END | disposition home or self-care (01) ==
LOC: RADCTMAIN 14:13
PROVIDERS: ATTEND Orthopaedic Surgery
DX: M17.12 Unilateral primary osteoarthritis, left knee

== ENCOUNTER → 2023-11-16 | Outpatient (CLI) | payer MEDICARE ==
[2023-11-16 11:19] LABS: INR 1.2 (<1.2); Partial Thromboplastin Time 24.5 sec (22.0-30.0); Prothrombin Time 12.5 sec (10.0-12.5)
[2023-11-16 16:30] LABS: HCT 44.7 % (39.6-50.0); HGB 14.7 g/dL (13.0-17.0); MCH 31.2 pg (27.0-32.0); MCHC 32.9 g/dL (32.0-37.0); MCV 94.9 FL (80.0-97.0); Mean Platelet Volume 10.6 FL (9.5-12.2); NRBC Per 100 WBC 0 X 10*3/uL (0.00-0.01); Platelet Count 195 X 10*3/uL (140-440); RBC 4.71 X 10*6/uL (4.40-5.60); RDW 12.8 % (11.5-14.5); WBC 5.97 X 10*3/uL (4.50-10.00)
[2023-11-16 16:34] LABS: ALT 13 U/L (10-49); AST 17 U/L (14-35); Albumin 4.4 g/dL (3.8-4.9); Albumin/Globulin Ratio 1.91 Ratio (1.60-3.17); Alkaline Phosphatase 61 U/L (41-126); BUN/Creat Ratio 10.75 Ratio (12.00-20.00); Blood Urea Nitrogen 12.9 mg/dL (9.0-27.0); Calcium 9.8 mg/dL (8.7-10.3); Carbon Dioxide 25.6 mmol/L (21.6-31.8); Chloride 108 mmol/L (96-109); Globulin 2.3 g/dL (1.6-3.3); Glucose 91 mg/dL (70-110); Potassium 5.2 mmol/L (3.5-5.5); Sodium 143 mmol/L (135-145); Total Bilirubin 0.9 mg/dL (0.3-1.2); Total Protein 6.7 g/dL (6.2-8.2)
== END | disposition home or self-care (01) ==
LOC: LABPAT 10:03
PROVIDERS: ATTEND Orthopaedic Surgery
DX: Z01.818 Encounter for other preprocedural examination (principal); Z22.322 Carrier or suspected carrier of Methicillin resistant Staphylococcus aureus; E11.9 Type 2 diabetes mellitus without complications; M17.12 Unilateral primary osteoarthritis, left knee
CPT/HCPCS: 80053; 83036; 85027; 85610; 85730; 87070; 93005

== ENCOUNTER 2023-12-03 11:13 | Day surgery (SDC) | payer MEDICARE ==
[~2023-12-03 11:13] MED LIST changes: -LIDOCAINE 1% (10MG/ML) FOR IV START INTRADERMA PRN; -MIDAZOLAM 2 MG/2 ML VIAL IV PRN
[2023-12-03] MEDS: FAMOTIDINE 20 MG/2 ML VIAL IVP PRN (11:53)
[2023-12-03] MEDS: ONDANSETRON 4 MG/2 ML VIAL IVP PRN (11:54)
[2023-12-03] MEDS: DEXAMETHASONE SOD PHOSPHATE 10 MG/ML 1 ML VIAL IV PRN (11:54)
[2023-12-03] MEDS: ACETAMINOPHEN TAB 500 MG TAB PO PRN ×2 (11:54→16:51)
[2023-12-03] MEDS: KETOROLAC 15 MG/ML 1 ML VIAL IVP PRN (11:54)
[2023-12-03] MEDS: oxyCODONE ER 10 MG TAB.ER.12H PO PRN (11:55)
[2023-12-03] MEDS: LACTATED RINGERS 1,000 ML IV SCH (11:55)
[2023-12-03] MEDS: DOCUSATE 100 MG CAP PO PRN (11:55)
[2023-12-03] MEDS: IV FLUID CONTINUATION 1,000 ML IV ONE (11:58)
[2023-12-03] MEDS: MIDAZOLAM 2 MG/2 ML VIAL IV PRN (12:07)
[2023-12-03] MEDS ORDERED: NEOSTIGMINE 1 MG/ML 10 ML VIAL ONE (12:26)
[2023-12-03] MEDS ORDERED: ROPIVACAINE 5 MG/ML 30 ML VIAL ONE (12:26)
[2023-12-03] MEDS ORDERED: MIDAZOLAM 2 MG/2 ML VIAL ONE (12:26)
[2023-12-03] MEDS ORDERED: PROPOFOL 10 MG/ML 20 ML VIAL IV ONE (12:26)
[2023-12-03] MEDS ORDERED: PHENYLEPHRINE 10 MG/ML VIAL ONE (12:26)
[2023-12-03] MEDS ORDERED: ROCURONIUM 10 MG/ML (5 ML VIAL) IV ONE (12:26)
[2023-12-03] MEDS ORDERED: SODIUM CHLORIDE 0.9% (PF) 10 ML VIAL ONE (12:26)
[2023-12-03] MEDS ORDERED: GLYCOPYRROLATE 0.2 MG/ML 2 ML VIAL ONE (12:26)
[2023-12-03] MEDS ORDERED: SUCCINYLCHOLINE CHLORIDE 200 MG/10 ML VIAL IV ONE (12:26)
[2023-12-03] MEDS ORDERED: WATER FOR INJECTION, STERILE 10 ML VIAL IV ONE (12:26)
[2023-12-03] MEDS ORDERED: fentaNYL (PF) 50 MCG/ML 2 ML AMP ONE (12:26)
[2023-12-03] MEDS ORDERED: ePHEDrine 50 MG/ML 1 ML VIAL ONE (12:26)
[2023-12-03] MEDS ORDERED: LIDOCAINE 1% INJ 10MG/ML (20 ML MDV) ONE (12:26)
[2023-12-03] MEDS: ROPIVACAINE/EPI/CLONIDINE/KET 50 ML SYRINGE MISCELLANE PRN (13:09)
[2023-12-03] MEDS: LACTATED RINGERS 1,000 ML IV ONE (13:15)
--- NOTE | 2023-12-03 13:33 | P.ANPRN ---
Procedure Note - Anesthesia - Nerve Block Performed Left Adductor Canal Single Time Out Performed: Yes (1207) Date of Procedure: 12/03/23 Procedure Start Time: 12:08 Procedure Stop Time: 12:12 Location of Patient: PreOp Indication: Acute Post-Operative Pain, Requested by Surgeon Specifically requested for management of pain by DrSheeba: Patricio Siddiqui Sedation Type: Sedate with meaningful contact maintained Preparation: Sterile Prep Position: Supine Catheter: None Needle Types: Pajunk Needle Gauge: 21 Ultrasound used to visualize needle placement: Yes Ultrasound used to observe medication spread: Yes Injectate: 0.5% Ropivacaine (see comment for volume) (15cc+10cc nacl pf) Blood Aspirated: No Pain Paresthesia on Injection Noted: No Resistance on Injection: Normal Image Stored and Saved: Yes Events: Uneventful and Well Tolerated
--- NOTE | 2023-12-03 13:34 | P.ANPRN ---
Procedure Note - Anesthesia - Nerve Block Performed Left iPack Single Time Out Performed: Yes (1207) Date of Procedure: 12/03/23 Procedure Start Time: 12:13 Procedure Stop Time: 12:17 Location of Patient: PreOp Indication: Acute Post-Operative Pain, Requested by Surgeon Specifically requested for management of pain by DrSheeba: Patricio Siddiqui (\) Sedation Type: Sedate with meaningful contact maintained Preparation: Sterile Prep Position: Supine Catheter: None Needle Types: Pajunk Needle Gauge: 21 Ultrasound used to visualize needle placement: Yes Ultrasound used to observe medication spread: Yes Injectate: 0.5% Ropivacaine (see comment for volume) (15cc+10cc nacl pf) Blood Aspirated: No Pain Paresthesia on Injection Noted: No Resistance on Injection: Normal Image Stored and Saved: Yes Events: Uneventful and Well Tolerated
[2023-12-03] MEDS ORDERED: NA PHOS,M-B/NA PHOS,DI-BA 133 ML ENEMA RECTAL PRN (14:31)
[2023-12-03] MEDS ORDERED: HYDROcodone/APAP 5-325MG 1 EACH TAB PO PRN (14:31)
[2023-12-03] MEDS ORDERED: MAGNESIUM HYDROXIDE 2,400 MG/30 ML CUP PO PRN (14:31)
[2023-12-03] MEDS ORDERED: HYDROmorphone 0.5 MG/0.5 ML SYRINGE IVP PRN ×2 (14:31)
[2023-12-03] MEDS ORDERED: hydrOXYzine pamoate 25 MG CAP PO PRN (14:31)
[2023-12-03] MEDS ORDERED: ONDANSETRON 4 MG/2 ML VIAL IVP PRN (14:31)
[2023-12-03] MEDS ORDERED: bisacodyL 10 MG SUPP RECTAL PRN (14:31)
[2023-12-03] MEDS ORDERED: NALOXONE 0.4 MG/ML 1 ML VIAL IV PRN (14:31)
--- NOTE | 2023-12-03 14:31 | P.OP ---
"Date of Procedure: 12/03/23 Preoperative Diagnosis: 1. Left knee osteoarthritis Postoperative Diagnosis: Same Procedure(s) Performed: 1. Left total knee arthroplasty 2. Computer assisted musculoskeletal navigation using CT/MRI images Implants: 1. [place] Triathlon CR Femur Size #4 2. Gisele Triathlon [place] Tibial Base Size #4 3. Gisele Triathlon CS poly Size #10 4. [place] Triathlon all poly patella, Size #32 Anesthesia: LUISA, regional Surgeon: Patricio Siddiqui Double Needle Operator #1: Delfino Mitchell Estimated Blood Loss (ml): 100 IV fluids (ml): 800 Pathology: none sent Condition: stable Disposition: PACU Indications for Procedure: I met with the patient preoperatively in the office setting and discussed treatment of their symptomatic knee arthritis. They failed a long course of nonsurgical treatment and elected to proceed with an elective total knee replacement. I discussed the potential risks and complications at length and gave them ample time to ask questions. Risks discussed included: risks from anesthesia, superficial site surgical infection, acute and/or chronic periprosthetic joint infection, delayed wound healing, drainage, wound necrosis, instability, stiffness, stiffness requiring manipulation and/or revision surgery, damage to local blood vessels or nerves, aseptic loosening of the implants, extensor mechanism issues including disruption, patellar maltracking, avascular necrosis etc., continued or worsened knee pain, generalized dissatisfaction with surgical outcome, need for revision surgery, an inability to regain preinjury level of function, DVT, PE, other medical complications, and possibly loss of life or limb. The patient voiced their understanding that while these are the most common complications other less common complications are possible. They provided both their verbal and written consent to go forward with surgery. Operative Findings: Severe tricompartmental osteoarthritis Description of Procedure: The patient was identified in preoperative holding and the correct operative extremity was verified and marked with a marker. I reviewed the consent form with the patient at length. All of their questions were answered. The patient was given a block by anesthesia. They were then brought back to the operating room. They were transferred onto the operating room table where a general anesthetic, preoperative antibiotics, and tranexamic acid were administered by anesthesia. A tourniquet was applied to the proximal aspect of the operative extremity. The contralateral extremity was padded under the heel and secured to the operating room table with a nonsterile blue towel and tape. The ipsilateral arm was carefully draped across the patient's chest and secured with a pillow and foam. A post was applied over the lateral aspect of the ipsilateral thigh and a bolster was placed under the ipsilateral foot. I verified that the operative extremity was stable and the knee was flexed to 90. The operative extremity was then placed in a leg lovelace, nonsterile drapes were applied, and the extremity was prepped and draped sterilely in the standard sterile fashion. Prior to starting surgery timeout was performed identifying the correct patient, operative extremity, and procedure. The leg was then elevated, exsanguinated with an Esmarch bandage, and the tourniquet was inflated. An anterior midline incision was made sharply with a scalpel. Once I had dissected deep to the superficial fascial layer medial and lateral flaps were elevated. A medial parapatellar arthrotomy was created. Upon opening the knee joint there were diffuse arthritic changes in all 3 compartments. The anterior horn of the medial meniscus were sharply released and a medial release was performed around the posterior medial corner of the knee to facilitate retractor placement. The fat pad was excised with electrocautery. The patella was found to be severely arthritic and a provisional cut was made with a sagittal saw to facilitate mobilization of the extensor mechanism during the procedure. Remnants of the ACL and PCL were then excised from the notch. 4 mm pins were then placed within the incision in the medial distal femur and proximal tibia. Arrays were applied to the pins and I verified they were completely tightened. The knee was then registered with the [id number] robot and manipulations in implant position were made to balance the knee and opitmize implant position. Using the Shilo robotic saw all cuts were made in accordance with our plan. After all bony fragments had been removed the cuts were verified with the planar probe. The tibia was then subluxed forward and sized. The knee was brought into flexion and a lamina orthodontist vice president was placed to allow removal of the meniscal remnants both medially and laterally as well as posterior osteophytes. Local anesthetic was then infiltrated around the joint capsule. Trial implants were then placed within the knee. Range of motion and collateral ligament tension was then evaluated. Adjustments in implant size and position were then made accordingly. Once the knee was felt to be appropriately balanced the Shilo pins were removed. The patella was then recut, sized, and punched. A trial patellar button was then placed. With the trial components in place, the patella tracked midline. The femur was then drilled and the trial component removed. The trial tibial component was then appropriately rotated, pinned, and prepared for the keel. All trial components were then removed from the knee. The knee was thoroughly irrigated with pulsatile lavage. Cement was prepared via vacuum mixing in a bowl on the back table. I then hand pressurized cement into the femur and tibia and placed the implants beginning with the tibial base tray and poly liner, femoral component, and finally the patellar button. All extruded cement was removed including from the pin sites. Once the cement had hardened the knee was evaluated one final time with the final polyethylene liner in place. The knee had full extension and flexion and felt stable to varus and valgus stress throughout the arc of motion. The tourniquet was released and with the tourn iquet down the patella tracked midline. All bleeders were controlled with electrocautery. The knee was then soaked for 3 minutes with a dilute Betadine soak. The knee was thoroughly irrigated using 3 L of sterile saline and pulsatile lavage. The extensor mechanism was then reapproximated using pop off Vicryl sutures followed by a running barbed suture. The knee was then closed in layers with a 0 strata fix for the deep fascial layer, 2-0 strata fix for the superficial subcutaneous layer and Monocryl and Steri-Strips for the skin. A sterile dressing was applied. I verified that all instrument, sponge, and sharp counts were correct. The patient was then transferred off the operating room table, extubated, and brought to recovery having tolerated the procedure well. Delfino Mitchell PA-C was required as a skilled dietary assistant for patient positioning, draping, exposure, retraction, closure of wound and application of dressing PLAN: The patient can weight-bear as tolerated on the operative extremity. DVT prophylaxis with aspirin 81 mg twice a day based on preoperative risk stratification. Internal medicine for perioperative medical management. 2 doses of post-operative antibiotics. Physical therapy for gait training. Follow-up in the office in 2 weeks for wound check and x-rays of the knee including an AP and lateral."
--- NOTE | 2023-12-03 15:38 | XR ---
Left knee Limited HISTORY: Postop total left knee replacement. COMPARISON: None. TECHNIQUE: 2 intraoperative portable views of the left knee were obtained. FINDINGS: There has been placement of a total left knee prosthesis. Appears to be near anatomic alignment. Ther e is no acute fracture. IMPRESSION: Satisfactory appearance of a total left knee prosthesis [facility] Ginny Soni, , 12/03/2023 3:36 PM
[2023-12-03] MEDS: SODIUM CHLORIDE 0.9% 1,000 ML IV SCH (16:55)
[2023-12-03] MEDS: SENNOSIDES-DOCUSATE SODIUM 1 EACH TAB PO SCH (20:28)
[2023-12-03] MEDS: ASPIRIN 81 MG PO SCH (20:28)
[2023-12-04] MEDS: HYDROcodone/APAP 10-325MG 1 EACH TAB PO PRN (06:44)
--- NOTE | 2023-12-04 07:38 | P.DS ---
Providers Date of admission: 12/03/2023 Attending physician: Patricio Siddiqui Consults: 12/03/23 14:31 Consult Physician Routine Consulting Provider: Gonzalo Riojas Consult Reason/Comments: post op medical management Do you want consulting provider notified?: Yes Primary care physician: [facility] Course: Visions very pleasant 77-year-old male who underwent an uncomplicated left total knee replacement yesterday. Following surgery he was transferred to the orthopedic floor in stable condition. I evaluated the patient on postoperative day #1 and is doing well. His pain was controlled. There is minimal swelling in the leg. His dressing was intact. His thigh and calf are soft. He was able to actively plantarflex and dorsiflex his ankle and his toes. Physical therapy was consulted. Internal medicine was consulted. The patient was ultimately cleared for discharge home. Plan - Discharge Summary Discharge Rx Participant: Yes New Discharge Prescriptions: New HYDROcodone/APAP 5-325MG [[place] 5-325] 1 - 2 tab PO Q6HR PRN #56 tab PRN Reason: Pain Omeprazole [PriLOSEC] 40 mg PO DAILY #30 cap Celecoxib [CeleBREX] 200 mg PO BID #60 cap Aspirin 81 mg PO BID #60 tab Docusate [Colace] 100 mg PO BID #60 capsule No Action Cetirizine HCl 10 mg PO DAILY Multivitamin [Multivitamins Adult Gummies] 1 each PO DAILY Ashwagandha (Unknown Dose) 1 tab PO DAILY Vitamin C (Unknown Dose) 1 tab PO DAILY Acetaminophen [Tylenol] 325 - 650 mg PO Q6H PRN PRN Reason: Pain lidocaine HCL [Aspercreme Lidocaine] 1 applic TOPICAL BID PRN PRN Reason: KNEE PAIN Turmeric (Unknown Dose) 1 tab PO DAILY Collagen (Unknown Dose) 1 dose PO DAILY Vitamin B Complex 1 each PO DAILY Krill/[place]-3/Dha/Epa/Lipids [Krill Oil 350 mg Softgel] 1 cap PO DAILY Discharge Medication List Ashwagandha (Unknown Dose) 1 tab PO DAILY 05/18/23 [History] Cetirizine HCl 10 mg PO DAILY 05/18/23 [History] Collagen (Unknown Dose) 1 dose PO DAILY 05/18/23 [History] Multivitamin [Multivitamins Adult Gummies] 1 each PO DAILY 05/18/23 [History] Turmeric (Unknown Dose) 1 tab PO DAILY 05/18/23 [History] Vitamin B Complex 1 each PO DAILY 05/18/23 [History] Vitamin C (Unknown Dose) 1 tab PO DAILY 05/18/23 [History] Acetaminophen [Tylenol] 325 - 650 mg PO Q6H PRN 11/30/23 [History] Krill/[place]-3/Dha/Epa/Lipids [Krill Oil 350 mg Softgel] 1 cap PO DAILY 11/30/23 [History] lidocaine HCL [Aspercreme Lidocaine] 1 applic TOPICAL BID PRN 11/30/23 [History] Aspirin 81 mg PO BID #60 tab 12/03/23 [Rx] Celecoxib [CeleBREX] 200 mg PO BID #60 cap 12/03/23 [Rx] Docusate [Colace] 100 mg PO BID #60 capsule 12/03/23 [Rx] HYDROcodone/APAP 5-325MG [[place] 5-325] 1 - 2 tab PO Q6HR PRN #56 tab 12/03/23 [Rx] Omeprazole [PriLOSEC] 40 mg PO DAILY #30 cap 12/03/23 [Rx] Follow up Appointment(s)/Referral(s): Patricio Siddiqui MD [Medical Doctor] - 2 Weeks Activity/Diet/Wound Care/Special Instructions: 1. Weight-bear as tolerated on your operative extremity unless instructed otherwise. Use a walker or other assistive device to ambulate. 2. Leave surgical dressing in place. If your dressing becomes saturated with blood, there is drainage, or the dressing becomes loose please contact the office. 3. It is okay to shower with your surgical dressing, but do not submerge in water (no hot tubs, bath's, swimming etc.) 4. Make sure to take her blood clot prevention medication as prescribed (aspir in, Eliquis, Xarelto, and Plavix are commonly prescribed medications for blood clot prevention) 5. While taking [place] or Percocet for pain make sure you're taking a stool softener (Colace) and drink lots of water. 6. Keep all follow-up appointments as scheduled. You will usually be seen in 1-2 weeks following surgery. 7. Please contact the office with any questions or concerns [phone] Discharge Disposition: HOME WITH HOME HEALTH SERVICES
[2023-12-04 08:21] VITALS: BP 105/59; PULSE 83; RESP 18; TEMP 98.6
[2023-12-04 08:25] LABS: Basophils % (A) 0 %; Eosinophils % (A) 0 %; HCT 36.6 % (39.0-53.0); HGB 12.4 gm/dL (13.0-17.5); Lymphocytes # (A) 0.8 k/uL (1.0-4.8); Lymphocytes % (A) 5 %; MCH 32.2 pg (25.0-35.0); MCHC 33.8 g/dL (31.0-37.0); MCV 95.3 fL (80.0-100.0); Mean Platelet Volume 8.3; Monocytes % (A) 6 %; Neutrophils # (A) 15.1 k/uL (1.3-7.7); Neutrophils % (A) 89 %; Platelet Count 160 k/uL (150-450); RBC 3.84 m/uL (4.30-5.90); RDW 12.8 % (11.5-15.5)
[2023-12-04] MEDS: MULTIVITAMINS, THERA 1 EACH TAB PO SCH (11:56)
--- NOTE | 2023-12-04 14:29 | P.CONS ---
History of Present Illness - Reason for Consult Consult date: 12/04/23 - History of Present Illness Patient is a 77-year-old male with left knee osteoarthritis here for scheduled surgery for total left knee replacement. Patient is postop day 1. Patient states he is doing well, has minimal pain. Minimal swelling in the leg. No overnight events. No other acute complaints. Denies any chest pain, shortness of breath, fever, chills, nausea, vomiting, abdominal pain. Review of systems: Pertinent positives and negatives as discussed in HPI, a complete review of systems was performed and all other systems are negative. Physical examination: Vitals: T98.6 F, NC 83, RR 18, BP 105/59, O2 sat 95% on room air General: non toxic, no distress, appears at stated age, normal weight Derm: no unusual rashes/lesions, warm Head: atraumatic, normocephalic, symmetric Eyes: EOMI, no lid lag, anicteric sclera, pupils equal round reactive to light ENT: Nose and ears atraumatic Neck: No cervical lymphadenopathy, trachea midline, supple Mouth: no lip lesion, mucus membranes moist Cardiovascular: S1S2 reg, no murmur, positive dorsalis pedis pulse bilateral, no edema Lungs: CTA bilateral, no rhonchi, no rales, no accessory muscle use Abdominal: soft, nontender to palpation, no guarding Ext: muscle strength 5 out of 5 in all 4 extremities grossly, no gross muscle atrophy, no contractures, Neuro: CN II-XI grossly intact, no gross focal neuro deficits Psych: Alert, oriented, appropriate affect Assessment/Plan: Patient is a 77-year-old male with left knee osteoarthritis here for scheduled surgery for total left knee replacement. Patient is postop day 1. #. Leukocytosis WBC 17 Most likely reactive to the surgery Patient presents with no other signs of infection Patient previously on antibiotics per surgical service #. Total left knee replacement Pain management and DVT prophylaxis controlled by primary surgery service. Dressing intact Pending further recommendations primary surgery service. Cleared from a medical standpoint. Will continue to follow. Attestation I have seen and examined this patient with my resident , discussed the same with the resident/IAM, and agree with the dictator's assessment and plan as written Dr. Gerard augustin Past Medical History Past Medical History: No Reported History History of Any Multi-Drug Resistant Organisms: None Reported Past Surgical History: Hernia Repair, Orthopedic Surgery, Tonsillectomy Additional Past Surgical History / Comment(s): BILATERAL JOINT RECONSTRUCTION. 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 scrotal vein surgery, total left knee 12/03/23 Past Anesthesia/Blood Transfusion Reactions: No Reported Reaction Smoking Status: Never smoker - Past Family History Father Family Medical History: Congestive Heart Failure (CHF) Medications and Allergies Home Medications Medication Instructions Recorded Confirmed Type Ashwagandha (Unknown Dose) 1 tab PO DAILY 05/18/23 11/30/23 History Cetirizine HCl 10 mg PO DAILY 05/18/23 12/03/23 History Collagen (Unknown Dose) 1 dose PO DAILY 05/18/23 11/30/23 History Multivitamin [Multivitamins Adult 1 each PO DAILY 05/18/23 11/30/23 History Gummies] Turmeric (Unknown Dose) 1 tab PO DAILY 05/18/23 11/30/23 History Vitamin B Complex 1 each PO DAILY 05/18/23 11/30/23 History Vitamin C (Unknown Dose) 1 tab PO DAILY 05/18/23 11/30/23 History Acetaminophen [Tylenol] 325 - 650 mg PO Q6H PRN 11/30/23 12/03/23 History Krill/Grey Eagle-3/Dha/Epa/Lipids 1 cap PO DAILY 11/30/23 11/30/23 History [Krill Oil 350 mg Softgel] lidocaine HCL [Aspercreme 1 applic TOPICAL BID PRN 11/30/23 12/03/23 History Lidocaine] Aspirin 81 mg PO BID #60 tab 12/03/23 Rx Celecoxib [CeleBREX] 200 mg PO BID #60 cap 12/03/23 Rx Docusate [Colace] 100 mg PO BID #60 capsule 12/03/23 Rx HYDROcodone/APAP 5-325MG [[place] 1 - 2 tab PO Q6HR PRN #56 tab 12/03/23 Rx 5-325] Omeprazole [PriLOSEC] 40 mg PO DAILY #30 cap 12/03/23 Rx Allergies Allergy/AdvReac Type Severity Reaction Status Date / Time No Known Allergies Allergy Verified 12/03/23 11:33 Physical Exam Vitals: Vital Signs Temp Pulse Pulse Resp BP Pulse Ox 12/04/23 07:14 98.6 F 83 18 105/59 95 12/04/23 01:05 97.7 F 71 16 96/47 94 L 12/03/23 19:14 68 17 101/51 96 12/03/23 17:33 78 117/67 99 12/03/23 17:18 75 113/62 100 12/03/23 17:03 71 112/66 100 12/03/23 16:48 75 113/64 100 12/03/23 16:33 66 18 110/62 100 12/03/23 16:08 66 18 104/56 100 12/03/23 15:53 69 18 101/56 97 12/03/23 15:38 67 20 106/55 99 12/03/23 15:23 73 18 96/46 98 12/03/23 15:08 77 18 104/42 97 12/03/23 14:53 97 F L 81 16 117/54 99 12/03/23 12:24 63 16 104/64 100 12/03/23 11:46 97.1 F L 74 16 135/60 98 Intake and Output 12/03/23 12/04/23 12/04/23 22:59 06:59 14:59 Intake Total 200 Balance 200 Intake: IV 200 Other: # Voids 0 1 Weight 70.307 kg Results CBC & Chem 7: 12/04/23 07:34 Labs: Abnormal Lab Results - Last 24 Hours (Table) 12/04/23 Range/Units 07:34 WBC 17.0 H (3.8-10.6) k/uL RBC 3.84 L (4.30-5.90) m/uL Hgb 12.4 L (13.0-17.5) gm/dL Hct 36.6 L (39.0-53.0) % Neutrophils # 15.1 H (1.3-7.7) k/uL Lymphocytes # 0.8 L (1.0-4.8) k/uL
== END 2023-12-04 13:56 | disposition home health service (06) ==
LOC: OR 11:13 → 4SSUR 14:39 → OR 12-04 13:56
PROVIDERS: ATTEND Orthopaedic Surgery
DX: M17.12 Unilateral primary osteoarthritis, left knee (principal)
CPT/HCPCS: 64447; 64999; 85025